=== PATIENT | male | born 1940 | race Caucasian/White ===

== ENCOUNTER 2016-08-29 19:57 | Observation (INO) | payer MEDICARE, BC ==
[~2016-08-29] VITALS: Ht 175.3 cm; Wt 90.0 kg
[~2016-08-29 19:57] MED LIST: ASPI-99 PO; BENI40TA30 PO; FINA1TAB2 PO; LEVA750T PO; PREV30CA36 PO; SIMV20 PO
[2016-08-29 20:00] VITALS: BP 135/70; PULSE 83; RESP 16; TEMP 97.9; O2SAT 95
[2016-08-29 21:00] VITALS: BP 142/79; PULSE 77; RESP 16; O2SAT 96
[2016-08-29] MEDS ORDERED: ASPIRIN 81 MG CHEW TAB PO ONE (21:00)
[2016-08-29] MEDS ORDERED: SODIUM CHLORIDE 0.9% FLUSH 5 ML FLUSH IVF PRN ×2 (21:00→22:45)
--- NOTE | 2016-08-29 21:05 | PD ---
HPI Chief Complaint: Chest Pain Time Seen by Provider: 21:02 Travel History International Travel<30 days: No Contact w/Intl Traveler<30days: No Traveled to known affect area: No History of Present Illness HPI 75-year-old male presents to the emergency department for evaluation of chest pain that started last night. He states it has changed positions since last night. He had some again this afternoon. He denies a chest pain at this time. Patient does report a history of a stent in his abdominal aortic, hypertension , hyperlipidemia. Patient takes an aspirin at night. He has not had aspirin yet today. 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 He just came from [place] approximately one week ago which was an [address] He also states that he went to [place] in June. Patient denies any leg swelling or hemoptysis. He does report a mild dry cough. No fevers. PFSH Past Medical History Hx Anticoagulant Therapy: Yes (ASA) Heart Rhythm Problems: Yes Cancer: Yes (SKIN) Cardiovascular Problems: Yes (HTN, AORTIC STENT) High Cholesterol: Yes Diminished Hearing: No Endocrine: No Gastrointestinal Disorders: Yes GERD: Yes Genitourinary: No Hypertension: Yes Immune Disorder: No Musculoskeletal: No Neurologic: No Psychiatric: No Reproductive: No Respiratory: No Past Surgical History Abdominal Aneurysm Repair: Yes Abdominal Surgery: Yes (AAA REPAIR) Appendectomy: Yes Body Medical Devices: AAA REPAIR-STENT PLACED Other Surgery: Yes Social History Alcohol Use: Yes (on occasion) Tobacco Use: No Substance Use: No Allergies-Medications (Allergen,Severity, Reaction): Coded Allergies: Contrast Media (Verified Adverse Reaction, Intermediate, Hives, 08/29/16) Reported Meds & Prescriptions Reported Meds & Active Scripts Active Reported Zocor (Simvastatin) 20 Mg Tab 20 Mg PO DAILY Benicar (Olmesartan) 40 Mg Tab 40 Mg PO DAILY Prevacid (Lansoprazole) 30 Mg Capdr 30 Mg PO DAILY Finasteride 5 Mg Tab 5 Mg PO DAILY Do not crush. Aspirin 81 (Aspirin) 81 Mg Tabdr 81 Mg PO DAILY Review of Systems Except as stated in HPI: all other systems reviewed are Neg Physical Exam Narrative GENERAL: Well-developed well-nourished male patient, afebrile. SKIN: Warm and dry. HEAD: Normocephalic. Atraumatic. EYES: No scleral icterus. No injection or drainage. NECK: Supple, trachea midline. No JVD or lymphadenopathy. CARDIOVASCULAR: Regular rate and rhythm without murmurs, gallops, or rubs. RESPIRATORY: Breath sounds equal bilaterally. No accessory muscle use. Lungs sounds are clear to auscultation. GASTROINTESTINAL: Abdomen soft, non-tender, nondistended. MUSCULOSKELETAL: No cyanosis, or edema. BACK: Nontender without obvious deformity. No CVA tenderness. Data Data Last Documented VS Vital Signs Date Time Temp Pulse Resp B/P Pulse Ox O2 Delivery O2 Flow Rate FiO2 08/29/16 21:00 77 16 142/79 96 Room Air 08/29/16 20:00 97.9 Orders Electrocardiogram (08/29/16 20:13) Basic Metabolic Panel (Bmp) (08/29/16 20:59) Ckmb (Isoenzyme) Profile (08/29/16 20:59) Complete Blood Count With Diff (08/29/16 20:59) D-Dimer (08/29/16 20:59) Magnesium (Mg) (08/29/16 20:59) Prothrombin Time / Inr (Pt) (08/29/16 20:59) Act Partial Throm Time (Ptt) (08/29/16 20:59) Troponin I (08/29/16 20:59) Chest, Single Ap (08/29/16 20:59) Ecg Monitoring (08/29/16 20:59) Bilateral Bp Monitoring (08/29/16 20:59) Iv Access Insert/Monitor (08/29/16 20:59) Oximetry (08/29/16 20:59) Oxygen Administration (08/29/16 20:59) Aspirin Chew (Aspirin Chew) (08/29/16 21:00) Sodium Chloride 0.9% Flush (Ns Flush) (08/29/16 21:00) CKMB (08/29/16 21:15) CKMB% (08/29/16 21:15) Admit Order (Ed Use Only) (08/29/16 22:35) Activity Bed Rest With Brp (08/29/16 22:36) Vital Signs (Adult) Q4H (08/29/16 22:36) Cardiac Rhythm .As Directed (08/29/16 22:36) ^ Notify Dr: Other .PRN (08/29/16 22:36) ^ Notify Dr. Parameters (08/29/16 22:36) Resp Oxygen Nasal Cannula (08/29/16 ) Ckmb (Isoenzyme) Profile (08/30/16 00:15) Ckmb (Isoenzyme) Profile (08/30/16 03:15) Troponin I (08/30/16 00:15) Troponin I (08/30/16 03:15) Electrocardiogram (08/30/16 00:15) Electrocardiogram (08/30/16 03:15) ^ Obtain (08/29/16 22:36) Sodium Chloride 0.9% Flush (Ns Flush) (08/29/16 22:45) Sodium Chloride 0.9% Flush (Ns Flush) (08/30/16 09:00) Labs Laboratory Tests Test 08/29/16 21:15 White Blood Count 11.5 TH/MM3 Red Blood Count 5.24 MIL/MM3 Hemoglobin 14.4 GM/DL Hematocrit 43.6 % Mean Corpuscular Volume 83.3 FL Mean Corpuscular Hemoglobin 27.6 PG Mean Corpuscular Hemoglobin 33.1 % Concent Red Cell Distribution Width 13.9 % Platelet Count 223 TH/MM3 Mean Platelet Volume 8.0 FL Neutrophils (%) (Auto) 77.2 % Lymphocytes (%) (Auto) 13.1 % Monocytes (%) (Auto) 6.2 % Eosinophils (%) (Auto) 3.0 % Basophils (%) (Auto) 0.5 % Neutrophils # (Auto) 8.9 TH/MM3 Lymphocytes # (Auto) 1.5 TH/MM3 Monocytes # (Auto) 0.7 TH/MM3 Eosinophils # (Auto) 0.3 TH/MM3 Basophils # (Auto) 0.1 TH/MM3 CBC Comment DIFF FINAL Differential Comment Prothrombin Time 11.5 SEC Prothromb Time International 1.0 RATIO Ratio Activated Partial 26.6 SEC Thromboplast Time Sodium Level 137 MEQ/L Potassium Level 3.6 MEQ/L Chloride Level 102 MEQ/L Carbon Dioxide Level 27.0 MEQ/L Anion Gap 8 MEQ/L Blood Urea Nitrogen 14 MG/DL Creatinine 1.07 MG/DL Estimat Glomerular Filtration 67 ML/MIN Rate Random Glucose 161 MG/DL Calcium Level 8.6 MG/DL Magnesium Level 2.1 MG/DL Total Creatine Kinase 157 U/L Creatine Kinase MB 2.2 NG/ML Troponin I LESS THAN 0.02 NG/ML [facility] Medical Decision Making Medical Screen Exam Complete: Yes Emergency Medical Condition: Yes Medical Record Reviewed: Yes Interpretation(s) chest x-ray - CONCLUSION: No acute disease. Differential Diagnosis ACS versus chest wall pain versus pneumonia versus pneumothorax versus PE Narrative Course 75-year-old male presents to the emergency department for evaluation of chest pain occurred last night and again today. He states chest pain is gone at this time. EKG, CBC, BMP, CK, troponin, magnesium, PTT, PT/INR, d-dimer are ordered and pending. Chest x-ray is ordered and pending. Lab notified me that the machine to run the d-dimer is down and the lab has to be sent to [place] for processing. EKG shows SR with RBB. CBC shows slight leukocytosis of 11.5. BMP shows no acute abnormality. CK is 157. Troponin is less than 0.02. Magnesium is 2.1. Coags are unremarkable. Chest x-ray shows no acute disease. D-dimer is still pending due to machine being down. I do feel that PE is not likely with patient 's symptoms. This will be followed up after patient is admitted to the chest pain center. Patient will be admitted to the chest pain center for further evaluation. Diagnosis Primary Impression: Chest pain Qualified Code: R07.9 - Chest pain, unspecified type Admitting Information Admitting Physician Requests: Rakel Barrett Aug 29, 2016 21:05
[2016-08-29] MEDS ORDERED: PREV30CA11 PO (21:08)
[2016-08-29] MEDS ORDERED: ASPI-110 PO (21:08)
[2016-08-29] MEDS ORDERED: ZOCO20TA PO (21:08)
[2016-08-29] MEDS ORDERED: FINA5TAB2 PO (21:08)
[2016-08-29] MEDS ORDERED: BENI40TA3 PO (21:08)
--- NOTE | 2016-08-29 21:18 | PD ---
Data Data Last Documented VS Vital Signs Date Time Temp Pulse Resp B/P Pulse Ox O2 Delivery O2 Flow Rate FiO2 08/29/16 22:00 72 16 151/83 95 08/29/16 21:00 Room Air 08/29/16 20:00 97.9 Orders Electrocardiogram (08/29/16 20:13) Basic Metabolic Panel (Bmp) (08/29/16 20:59) Ckmb (Isoenzyme) Profile (08/29/16 20:59) Complete Blood Count With Diff (08/29/16 20:59) D-Dimer (08/29/16 20:59) Magnesium (Mg) (08/29/16 20:59) Prothrombin Time / Inr (Pt) (08/29/16 20:59) Act Partial Throm Time (Ptt) (08/29/16 20:59) Troponin I (08/29/16 20:59) Chest, Single Ap (08/29/16 20:59) Ecg Monitoring (08/29/16 20:59) Bilateral Bp Monitoring (08/29/16 20:59) Iv Access Insert/Monitor (08/29/16 20:59) Oximetry (08/29/16 20:59) Oxygen Administration (08/29/16 20:59) Aspirin Chew (Aspirin Chew) (08/29/16 21:00) Sodium Chloride 0.9% Flush (Ns Flush) (08/29/16 21:00) CKMB (08/29/16 21:15) CKMB% (08/29/16 21:15) Admit Order (Ed Use Only) (08/29/16 22:35) Activity Bed Rest With Brp (08/29/16 22:36) Vital Signs (Adult) Q4H (08/29/16 22:36) Cardiac Rhythm .As Directed (08/29/16 22:36) ^ Notify Dr: Other .PRN (08/29/16 22:36) ^ Notify Dr. Parameters (08/29/16 22:36) Resp Oxygen Nasal Cannula (08/29/16 ) Ckmb (Isoenzyme) Profile (08/30/16 00:15) Ckmb (Isoenzyme) Profile (08/30/16 03:15) Troponin I (08/30/16 00:15) Troponin I (08/30/16 03:15) Electrocardiogram (08/30/16 00:15) Electrocardiogram (08/30/16 03:15) ^ Obtain (08/29/16 22:36) Sodium Chloride 0.9% Flush (Ns Flush) (08/29/16 22:45) Sodium Chloride 0.9% Flush (Ns Flush) (08/30/16 09:00) Labs Laboratory Tests Test 08/29/16 21:15 White Blood Count 11.5 TH/MM3 Red Blood Count 5.24 MIL/MM3 Hemoglobin 14.4 GM/DL Hematocrit 43.6 % Mean Corpuscular Volume 83.3 FL Mean Corpuscular Hemoglobin 27.6 PG Mean Corpuscular Hemoglobin 33.1 % Concent Red Cell Distribution Width 13.9 % Platelet Count 223 TH/MM3 Mean Platelet Volume 8.0 FL Neutrophils (%) (Auto) 77.2 % Lymphocytes (%) (Auto) 13.1 % Monocytes (%) (Auto) 6.2 % Eosinophils (%) (Auto) 3.0 % Basophils (%) (Auto) 0.5 % Neutrophils # (Auto) 8.9 TH/MM3 Lymphocytes # (Auto) 1.5 TH/MM3 Monocytes # (Auto) 0.7 TH/MM3 Eosinophils # (Auto) 0.3 TH/MM3 Basophils # (Auto) 0.1 TH/MM3 CBC Comment DIFF FINAL Differential Comment Prothrombin Time 11.5 SEC Prothromb Time International 1.0 RATIO Ratio Activated Partial 26.6 SEC Thromboplast Time D-Dimer Quantitative (PE/DVT) 0.97 MG/L FEU Sodium Level 137 MEQ/L Potassium Level 3.6 MEQ/L Chloride Level 102 MEQ/L Carbon Dioxide Level 27.0 MEQ/L Anion Gap 8 MEQ/L Blood Urea Nitrogen 14 MG/DL Creatinine 1.07 MG/DL Estimat Glomerular Filtration 67 ML/MIN Rate Random Glucose 161 MG/DL Calcium Level 8.6 MG/DL Magnesium Level 2.1 MG/DL Total Creatine Kinase 157 U/L Creatine Kinase MB 2.2 NG/ML Troponin I LESS THAN 0.02 NG/ML [facility] Medical Record Reviewed: Yes Supervised Visit with NEFTALI: Yes Interpretation(s) Last Impressions Chest X-Ray 08/29/162058 Signed Impressions: Service Date/Time: Monday, August 29, 2016 21:14 - CONCLUSION: No acute disease. Reggie Dempsey MD Narrative Course I, Dr. Cerna, have reviewed the advance practice practitioner's documentation and am in agreement, met with the patient face to face, made the diagnosis, and the medical decision making was done by me. The patient was initially evaluated by Rakel. Please see her complete history and physical. *My assessment and Findings: The patient is a 75-year-old male who presents to [facility] emergency Department with history of chest pain that is intermittently been present since last night. The patient has a history of abdominal aortic stenting, hypertension, and hyperlipidemia. He denies any prior history of cardiac disease. The patient was also incidentally recently on a trip in the car to [place]. The patient's initial examination is unremarkable. Laboratory studies and chest x-ray were ordered. The patient's laboratory studies revealed a positive d-dimer, VQ study was ordered. Chest x- ray showed no acute abnormality. Initial set of cardiac enzymes were negative. VQ scan was low probability for PE. The patient was agreeable with the plan to proceed with admission to the chest pain center for rule out serial cardiac enzyme protocol and consideration of stress testing as he has multiple risk factors for cardiac disease. The patients results were discussed with the patient, including the plan of care. I explained that further testing and/ or monitoring is indicated based on the patients history, examination, and/ or laboratory findings. Therefore, I recommended admission for additional evaluation. The patient expressed understanding and was agreeable with this plan. The patient was admitted to the hospital in stable condition and sent to a bed under the care of the chest pain center. Diagnosis Primary Impression: Chest pain Qualified Code: R07.9 - Chest pain, unspecified type Admitting Information Admitting Physician Requests: Becki Barber MD Aug 29, 2016 21:18
[2016-08-29 21:41] LABS: AUTOMATED NEUTROPHIL # 8.9 TH/MM3 (1.8-7.7); BASOPHIL # 0.1 TH/MM3 (0-0.2); BASOPHIL % 0.5 % (0.0-2.0); EOSINOPHIL # 0.3 TH/MM3 (0-0.4); HEMATOCRIT 43.6 % (39.0-51.0); HEMO FLAGS DIFF FINAL; LYMPH % 13.1 % (9.0-44.0); LYMPHOCYTE # 1.5 TH/MM3 (1.0-4.8); MEAN CELL VOLUME 83.3 FL (80.0-100.0); MEAN CORPUSCULAR HEMOGLOBIN 27.6 PG (27.0-34.0); MEAN CORPUSCULAR HGB CONC 33.1 % (32.0-36.0); MONO % 6.2 % (0.0-8.0); NEUT % 77.2 % (16.0-70.0); PLATELET COUNT 223 TH/MM3 (150-450); RED BLOOD COUNT 5.24 MIL/MM3 (4.50-5.90); RED CELL DISTRIBUTION WIDTH 13.9 % (11.6-17.2); WHITE BLOOD COUNT 11.5 TH/MM3 (4.0-11.0)
--- NOTE | 2016-08-29 21:47 | RADRPT ---
EXAM DATE/TIME: 08/29/2016 21:14 [facility] COMPARISON: CHEST SINGLE AP, July 05, 2014, 17:33. INDICATIONS : Patient states chest pain starting last night. MEDICAL HISTORY : None. SURGICAL HISTORY : Abdominal aortic aneurysm repair. Appendectomy. ENCOUNTER: Initial ACUITY: 2 days PAIN SCORE: 0/10 LOCATION: Bilateral chest FINDINGS: A single view of the chest demonstrates the lungs to be symmetrically aerated without evidence of mas s, infiltrate or effusion. The cardiomediastinal contours are unremarkable. Osseous structures are intact. CONCLUSION: No acute disease. Reggie Dempsey MD on August 29, 2016 at 21:45 Board Certified Radiologist. This report was verified electronically.
[2016-08-29 22:00] VITALS: BP 151/83; PULSE 72; RESP 16; O2SAT 95
[2016-08-29 22:07] LABS: ANION GAP 8 MEQ/L (5-15); BLOOD UREA NITROGEN 14 MG/DL (7-18); CHLORIDE 102 MEQ/L (98-107); GLOMERULAR FILTRATION RATE 67 ML/MIN (>89); MAGNESIUM 2.1 MG/DL (1.5-2.5); POTASSIUM 3.6 MEQ/L (3.5-5.1); SODIUM (NA) 137 MEQ/L (136-145)
[2016-08-29 22:11] LABS: APTT (PATIENT) 26.6 SEC (24.3-30.1); CREATINE KINASE 157 U/L (39-308); PROTHROMBIN TIME - PATIENT 11.5 SEC (9.8-11.6)
[2016-08-29 22:23] LABS: CKMB 2.2 NG/ML (0.5-3.6)
[2016-08-29 23:30] VITALS: O2SAT 96
[2016-08-30 00:55] LABS: CREATINE KINASE 141 U/L (39-308)
[2016-08-30 01:06] LABS: CKMB 1.4 NG/ML (0.5-3.6)
[2016-08-30 02:00] VITALS: BP 142/78; PULSE 55; RESP 16; O2SAT 96
--- NOTE | 2016-08-30 02:10 | RADRPT ---
EXAM DATE/TIME: 08/30/2016 01:37 [facility] COMPARISON: LUNG VENTILATION & PERFUSION SCAN, July 05, 2014, 20:55. INDICATIONS : Chest pain. DOSE: 8.8 mCi Tc99m MAA IV 1.2 mCi Tc99m DTPA aerosol MEDICAL HISTORY : Hypercholesterolemia. Hypertension. Gastroesophageal reflux disease. SURGICAL HISTORY : Appendectomy. Abdominal aortic aneurysm repair. Coronary artery stent. ENCOUNTER: Initial ACUITY: 1 week PAIN SCALE: 3/10 LOCATION: chest TECHNIQUE: Following five minutes of tidal breathing of DTPA aerosol, planar images of the lungs were performed in eight projections. The patient was then injected with MAA, and eight-view perfusion scan was perf ormed. FINDINGS: There is a heterogeneous pattern of aerosol delivery to the periphery of both lungs. No moderate or l arge photopenic defects observed. Central airway deposition noted. The perfusion lung scan demonstrates a few tiny peripheral subsegmental photopenic defects involving both upper lobes. These show matched defects in the ventilatory study. No subsegmental or segmental d efects observed. CONCLUSION: Low probability for pulmonary embolus. Gonsalo Jean Baptiste Jr., MD on August 30, 2016 at 2:07 Board Certified Radiologist. This report was verified electronically.
[2016-08-30 04:53] LABS: CREATINE KINASE 140 U/L (39-308)
[2016-08-30 05:00] VITALS: BP 126/77; PULSE 54; RESP 14; O2SAT 96
[2016-08-30 05:18] LABS: CKMB 1.3 NG/ML (0.5-3.6)
[2016-08-30 07:43] VITALS: BP 135/76; PULSE 67; RESP 12; O2SAT 97
[2016-08-30 08:20] VITALS: O2SAT 97
[2016-08-30] MEDS ORDERED: SODIUM CHLORIDE 0.9% FLUSH 5 ML FLUSH IVF SCH (09:00)
[2016-08-30 09:30] VITALS: BP 152/83; PULSE 73; RESP 20; TEMP 97.6; O2SAT 96
[2016-08-30 09:46] VITALS: PULSE 55
--- NOTE | 2016-08-30 10:24 | HHI.DCPOC ---
Discharge Care Plan Diagnosis: (1) Chest pain (2) Hypertension (3) Hyperlipidemia Goals to Promote Your Health FOLLOW UP WITH DR GRISELDA TOBIN EARLY NEXT WEEK FOR NUCLEAR STRESS TEST. * To prevent worsening of your condition and complications * To maintain your health at the optimal level Directions to Meet Your Goals Take your medications as prescribed Follow your dietary instruction Follow activity as directed Keep your appointments as scheduled Take your immunizations and boosters as scheduled If your symptoms worsen call your PCP, if no PCP go to Urgent Care Center or Emergency Room Smoking is Dangerous to Your Health. Avoid second hand smoke Call the 24-hour hour crisis hotline for domestic abuse at Fabrice Mcclendon Aug 30, 2016 10:24
[2016-08-30] MEDS ORDERED: LOSARTAN 50 MG TAB PO SCH (11:00)
--- NOTE | 2016-08-30 13:13 | EKG ---
Date Performed: 08/30/2016 Time Performed: 04:47:27 PTAGE: 75 years EKG: SINUS BRADYCARDIA POSSIBLE RIGHT VENTRICULAR CONDUCTION DELAY BORDERLINE ECG PREVIOUS TRACING : 08/30/2016 00.17 Since previous tracing, no significant change noted DOCTOR: Mac Wright Interpretating Date/Time 08/30/2016 13:13:21
--- NOTE | 2016-08-30 13:16 | MH ---
cc: GRISELDA WRIGHT MD DATE OF ADMISSION: 08/29/2016 DATE OF 1940 CHIEF COMPLAINT Chest pain HISTORY OF PRESENT ILLNESS This 75-year-old male presents to the ED complaining of two days of having intermittent discomfort across his chest. He describes it as a sharp discomforts across his chest lasting a second at a time. Last evening, this got a little worse and he was concerned and came to the ER. He has had no associated shortness of breath, nausea, or diaphoresis with his symptoms. He has traveled recently. He had just came in from [place] last week and about two months ago, he traveled throughout [place]. He denies any history of CAD. He cannot recall any stress testing, but believes he had a heart catheterization 20 years ago. He will be in [place] for a couple months. He currently denies any discomforts in his chest or recurrence since he has been in the hospital. PAST MEDICAL HISTORY 1. Hypertension 2. Hyperlipidemia 3. BPH 4. GERD 5. He also has a history of abdominal aortic aneurysm that was repaired with stenting. He states that has been followed annually since. 6. Past history of tobacco abuse, but quit 25 years ago. 7. Denies diabetes and CAD. FAMILY HISTORY Denies a family history of CAD. SOCIAL HISTORY He quit smoking 25 years ago. Rarely has alcohol and denies illicit drugs. PAST SURGICAL HISTORY He had an abdominal aortic aneurysm stented. ALLERGIES CONTRAST MEDIA CURRENT MEDICATIONS 1. Simvastatin 1. Benicar 2. Prevacid 3. Finasteride 4. Aspirin REVIEW OF SYSTEMS GENERAL: Denies fevers or chills. Denies recent illnesses. HEENT: Denies headache, earache, sore throat or difficulty swallowing. CARDIOVASCULAR: Describes the discomfort as mentioned above. Denies diaphoresis. Denies sensation of heart beating rapidly or irregularly. No syncope. RESPIRATORY: No shortness breath or inspirational chest discomfort. Denies coughing, wheezing or hemoptysis. GI: Denies nausea, vomiting, diarrhea, abdominal pain or blood in the stool. MUSCULOSKELETAL: Denies joint pain or edema. Denies calf pain or edema. NEUROVASCULAR: Denies headache or dizziness. ENDOCRINE: Denies by polyuria or polydipsia. HEMATOLOGIC: Denies easy bruising. SKIN: Denies rash or itching. PHYSICAL EXAMINATION VITAL SIGNS: In emergency department initially included a blood pressure of 135/70, heart rate was 83, respirations 16, pulse oximetry 95% on room air and he was afebrile. Most vital signs include a blood pressure 150/83, heart rate 73, respiratory rate 20, pulse oximetry 96% on room air. GENERAL: The patient seen in the examination room in no apparent stress. He is pleasant. Speaks in clear and complete sentences. HEAD, EYES, EARS, NOSE, AND THROAT: Head is atraumatic and normocephalic. NECK: Supple without lymphadenopathy and trachea is midline. No JVD or carotid bruits. CARDIOVASCULAR: Regular rate and rhythm without murmur, gallop or rub. RESPIRATORY: Lungs are clear to auscultation bilaterally. No wheezing, rales or rhonchi. There is no reproducible chest wall discomfort. No use of accessory muscles. GI: Abdomen is nontender and nondistended and bowel sounds are normal. No guarding or rebound. No obvious pulsatile mass or bruit. No CVA tenderness. Strong femoral pulses bilaterally. MUSCULOSKELETAL: Patient moving upper and lower x-rays freely. No joint tenderness or edema. No calf tenderness or edema, Homans' sign. Strong pulses in the upper and lower extremities. NEUROVASCULAR: The patient is alert and oriented. Cranial II XII are grossly intact. No focal deficits and speech is clear. SKIN: No rashes and skin turgor is normal. LABORATORY DATA CBC is essentially remarkable. Coagulation studies have a D-dimer elevated 0.97. Basic metabolic panel has a glucose elevated at 161, GFR is decreased at 67, otherwise unremarkable BMP. Serial cardiac enzymes normal x3. Single view chest x-ray read by radiologist as no acute disease. A VQ scan obtained through the emergency department read by the radiologist as low probability for pulmonary embolus. EKG's have sinus rhythm, sinus arrhythmia and sinus bradycardia, right bundle branch block. There is some nonspecific ST-T changes anterolaterally. ASSESSMENT AND PLAN 1. Atypical chest pain: The patient has had serial cardiac enzymes and EKG's for ruling out purposes. He has been seen by Dr. Griselda Wright of cardiology in the chest pain center. No further stress testing at this time. However, he is will follow up with Dr. Griselda Wright on an outpatient basis next week for nuclear stress testing at the time. He is to returned the ED for any interval issues. 2. Hypertension: Continue current medication. 3. Hyperlipidemia: Continue current medications. 4. Gastroesophageal reflux disease: Continue current medications. The patient is stable at time. He is agreeable to this plan. Dictated by NAVYA Liriano MD ROMELIA Tarn/RYLAN /11:04 AM /1:15 PM
--- NOTE | 2016-08-30 13:17 | EKG ---
Date Performed: 08/30/2016 Time Performed: 00:17:23 PTAGE: 75 years EKG: Sinus rhythm WITH MARKED SINUS ARRHYTHMIA RIGHT BUNDLE BRANCH BLOCK ABNORMAL ECG PREVIOUS TRACING : 08/29/2016 20.18 Since previous tracing, no significant change noted DOCTOR: Mac Wright Interpretating Date/Time 08/30/2016 13:16:36
--- NOTE | 2016-08-30 13:21 | EKG ---
Date Performed: 08/29/2016 Time Performed: 20:18:07 PTAGE: 75 years EKG: Sinus rhythm WITH MARKED SINUS ARRHYTHMIA RIGHT BUNDLE BRANCH BLOCK ABNORMAL ECG PREVIOUS TRACING : 07/06/2014 05.32 Since previous tracing, no significant change noted DOCTOR: Mac Wright Interpretating Date/Time 08/30/2016 13:19:47
[2016-08-31] MEDS ORDERED: FINASTERIDE 5 MG TAB PO SCH (09:00)
[2016-08-31] MEDS ORDERED: ASPIRIN EC 81 MG TABEC PO SCH (09:00)
[2016-08-31] MEDS ORDERED: PRAVASTATIN SOD 40 MG TAB PO SCH (09:00)
[2016-08-31] MEDS ORDERED: PANTOPRAZOLE SOD 40 MG DELAYED RELEASE TAB PO SCH (09:00)
== END 2016-08-30 15:29 | disposition home or self-care (01) ==
LOC: NEPC 19:57 → NEDA 22:37 → NEDH 08-30 02:37 → NEPFCDU 08-30 09:28
PROVIDERS: ADMIT Internal Medicine Interventional Cardiology; ATTEND Internal Medicine Interventional Cardiology
DX: R07.9 Chest pain, unspecified (principal); I10 Essential (primary) hypertension; E78.5 Hyperlipidemia, unspecified; R05 Cough; Z79.82 Long term (current) use of aspirin; E78.00 Pure hypercholesterolemia, unspecified; K21.9 Gastro-esophageal reflux disease without esophagitis; I71.4 Abdominal aortic aneurysm, without rupture; Z79.899 Other long term (current) drug therapy
CPT/HCPCS: 71010; 78582; 80048; 82550; 82552; 83735; 84484; 85025; 85379; 85610; 85730; 93005; 99285; A9540; A9567; G0378

== ENCOUNTER 2017-02-13 15:02 | Inpatient (IN) | payer MEDICARE, BC ==
[2017-02-13] VITALS (10 sets, daily range): BP systolic 116–145; BP diastolic 58–76; PULSE 54–76; RESP 16; TEMP 98–98.1; O2SAT 99–100
[~2017-02-13] VITALS: Ht 175.3 cm; Wt 90.5 kg
[~2017-02-13 15:02] MED LIST changes: +ASPI-110 PO; -ASPI-99 PO; +BENI40TA3 PO; -BENI40TA30 PO; -FINA1TAB2 PO; +FINA5TAB2 PO; -LEVA750T PO; +PREV30CA11 PO; -PREV30CA36 PO; -SIMV20 PO; +ZOCO20TA PO
--- NOTE | 2017-02-13 15:35 | PD ---
HPI Chief Complaint: Chest Pain Time Seen by Provider: 15:15 Travel History International Travel<30 days: No Contact w/Intl Traveler<30days: No Traveled to known affect area: No History of Present Illness HPI 76-year-old male here for evaluation of chest tightness. For the last 3 days the patient has had intermittent chest tightness. At first it was lower. Today he states that the tightness was across his mid and upper chest. Patient was not sure what he was doing when the tightness started today. He is currently pain-free. Past medical history is significant for hypertension, hyperlipidemia, GERD, AAA with a stent, quit smoking 25 years ago. He denies fevers or recent illness. No paresthesias or motor deficits. No known history of CAD. No history of DVT or PE. The patient was admitted to the chest pain center in August of this year and was discharged home after a negative VQ scan and 3 sets of negative cardiac enzymes. He followed up with residential substance abuse counselor Dr. Wright whom he states did an outpatient stress test which may have showed that there is an area of ischemia. PFSH Past Medical History Hx Anticoagulant Therapy: Yes (ASA) Heart Rhythm Problems: Yes Cancer: Yes (SKIN) Cardiovascular Problems: Yes (chest pain, AAA repair 4 years ago with stent) High Cholesterol: Yes (on simivistatin) Diminished Hearing: No Endocrine: No Gastrointestinal Disorders: Yes GERD: Yes Genitourinary: No Hypertension: Yes Immune Disorder: No Implanted Vascular Access Dvce: Yes Musculoskeletal: No Neurologic: No Psychiatric: No Reproductive: No Respiratory: No Tetanus Vaccination: Unknown Influenza Vaccination: Yes Past Surgical History Abdominal Aneurysm Repair: Yes Abdominal Surgery: Yes (AAA REPAIR) Appendectomy: Yes Body Medical Devices: AAA REPAIR-STENT PLACED Other Surgery: Yes Social History Alcohol Use: Yes (on occasion) Tobacco Use: No Substance Use: No Allergies-Medications (Allergen,Severity, Reaction): Coded Allergies: Contrast Media (Verified Adverse Reaction, Intermediate, Hives, 02/13/17) Reported Meds & Prescriptions Reported Meds & Active Scripts Active Reported Zocor (Simvastatin) 20 Mg Tab 20 Mg PO DAILY Benicar (Olmesartan) 40 Mg Tab 40 Mg PO DAILY Prevacid (Lansoprazole) 30 Mg Capdr 30 Mg PO DAILY Aspirin 81 (Aspirin) 81 Mg Tabdr 81 Mg PO DAILY Review of Systems Except as stated in HPI: all other systems reviewed are Neg Physical Exam Narrative GENERAL: Well-developed, well-nourished, comfortable, no acute distress. SKIN: Focused skin assessment warm/dry. HEAD: Atraumatic. Normocephalic. EYES: Pupils equal and round. No scleral icterus. No injection or drainage. ENT: Mucous membranes pink and moist. NECK: Trachea midline. No JVD. CARDIOVASCULAR: Regular rate and rhythm. Distal pulses brisk and equal bilaterally. RESPIRATORY: No accessory muscle use. Clear to auscultation. Breath sounds equal bilaterally. GASTROINTESTINAL: Abdomen soft, non-tender, nondistended. MUSCULOSKELETAL: No obvious deformities. No clubbing. No cyanosis. No edema. NEUROLOGICAL: Awake and alert. No obvious cranial nerve deficits. Motor grossly within normal limits. Normal speech. PSYCHIATRIC: Appropriate mood and affect; insight and judgment normal. Data Data Last Documented VS Vital Signs Date Time Temp Pulse Resp B/P Pulse Ox O2 Delivery O2 Flow Rate FiO2 02/13/17 15:50 100 Room Air 02/13/17 15:26 76 16 02/13/17 15:23 98.1 131/59 Orders Electrocardiogram (02/13/17 15:32) Basic Metabolic Panel (Bmp) (02/13/17 15:32) Ckmb (Isoenzyme) Profile (02/13/17 15:32) Complete Blood Count With Diff (02/13/17 15:32) Magnesium (Mg) (02/13/17 15:32) Prothrombin Time / Inr (Pt) (02/13/17 15:32) Act Partial Throm Time (Ptt) (02/13/17 15:32) Troponin I (02/13/17 15:32) Chest, Single Ap (02/13/17 15:32) Ecg Monitoring (02/13/17 15:32) Iv Access Insert/Monitor (02/13/17 15:32) Oximetry (02/13/17 15:32) Aspirin Chew (Aspirin Chew) (02/13/17 15:45) Sodium Chloride 0.9% Flush (Ns Flush) (02/13/17 15:45) CKMB (02/13/17 15:41) CKMB% (02/13/17 15:41) Metoprolol Tartrate (Lopressor) (02/13/17 16:45) Enoxaparin Inj (Lovenox Inj) (02/13/17 16:45) Consult Cardiology (02/13/17 ) Labs Laboratory Tests Test 02/13/17 15:41 White Blood Count 9.8 TH/MM3 Red Blood Count 4.86 MIL/MM3 Hemoglobin 14.2 GM/DL Hematocrit 41.1 % Mean Corpuscular Volume 84.7 FL Mean Corpuscular Hemoglobin 29.2 PG Mean Corpuscular Hemoglobin 34.5 % Concent Red Cell Distribution Width 12.8 % Platelet Count 221 TH/MM3 Mean Platelet Volume 8.5 FL Neutrophils (%) (Auto) 68.8 % Lymphocytes (%) (Auto) 19.1 % Monocytes (%) (Auto) 6.0 % Eosinophils (%) (Auto) 5.4 % Basophils (%) (Auto) 0.7 % Neutrophils # (Auto) 6.7 TH/MM3 Lymphocytes # (Auto) 1.9 TH/MM3 Monocytes # (Auto) 0.6 TH/MM3 Eosinophils # (Auto) 0.5 TH/MM3 Basophils # (Auto) 0.1 TH/MM3 CBC Comment DIFF FINAL Differential Comment Prothrombin Time 11.4 SEC Prothromb Time International 1.0 RATIO Ratio Activated Partial 26.4 SEC Thromboplast Time Sodium Level 143 MEQ/L Potassium Level 3.6 MEQ/L Chloride Level 106 MEQ/L Carbon Dioxide Level 25.8 MEQ/L Anion Gap 11 MEQ/L Blood Urea Nitrogen 13 MG/DL Creatinine 0.99 MG/DL Estimat Glomerular Filtration 73 ML/MIN Rate Random Glucose 141 MG/DL Calcium Level 8.8 MG/DL Magnesium Level 1.9 MG/DL Total Creatine Kinase 228 U/L Creatine Kinase MB 4.0 NG/ML Troponin I 0.57 NG/ML [facility] Medical Decision Making Medical Screen Exam Complete: Yes Emergency Medical Condition: Yes Medical Record Reviewed: Yes Interpretation(s) EKG: Sinus with occasional supraventricular premature complexes, RBBB, normal axis, no acute ischemic abnormality. Differential Diagnosis ACS, pneumothorax, peritonitis, PE, pneumonia GERD, musculoskeletal pain Narrative Course Vital signs show heart rate 76, blood pressure 131/59, pulse ox 100% on room air , oral temp of 98.1F. CBC is unremarkable. BMP is unremarkable. Troponin is 0.57. Chest x-ray: No acute cardiopulmonary disease. Patient and the patient's were made aware of all findings. Again he is resting comfortably. Currently chest pain-free. Case discussed with residential substance abuse counselor Dr. Wright who evaluated the patient in August of this year. He recommends giving the patient a dose of metoprolol as well as Lovenox. Patient was already given a dose of aspirin shortly after arrival to the emergency department. He recommends admission to the medical service and he will see the patient in consultation. Case discussed with hospitalist Dr. Valladares who will admit the patient to her service. Diagnosis Primary Impression: NSTEMI (non-ST elevated myocardial infarction) Admitting Information Admitting Physician Requests: Admit Jaspreet Hummel MD Feb 13, 2017 15:35
[2017-02-13] MEDS ORDERED: ASPIRIN 81 MG CHEW TAB PO ONE (15:45)
[2017-02-13] MEDS ORDERED: SODIUM CHLORIDE 0.9% FLUSH 10 ML FLUSH IVF PRN (15:45)
[2017-02-13 15:54] LABS: AUTOMATED NEUTROPHIL # 6.7 TH/MM3 (1.8-7.7); BASOPHIL # 0.1 TH/MM3 (0-0.2); BASOPHIL % 0.7 % (0.0-2.0); EOSINOPHIL # 0.5 TH/MM3 (0-0.4); EOSINOPHIL % 5.4 % (0.0-4.0); HEMATOCRIT 41.1 % (39.0-51.0); HEMO FLAGS DIFF FINAL; LYMPH % 19.1 % (9.0-44.0); LYMPHOCYTE # 1.9 TH/MM3 (1.0-4.8); MEAN CELL VOLUME 84.7 FL (80.0-100.0); MEAN CORPUSCULAR HEMOGLOBIN 29.2 PG (27.0-34.0); MEAN CORPUSCULAR HGB CONC 34.5 % (32.0-36.0); NEUT % 68.8 % (16.0-70.0); PLATELET COUNT 221 TH/MM3 (150-450); RED BLOOD COUNT 4.86 MIL/MM3 (4.50-5.90); RED CELL DISTRIBUTION WIDTH 12.8 % (11.6-17.2); WHITE BLOOD COUNT 9.8 TH/MM3 (4.0-11.0)
--- NOTE | 2017-02-13 15:57 | RADHPO ---
EXAM DATE/TIME: 02/13/2017 15:41 [facility] COMPARISON: CHEST SINGLE AP, August 29, 2016, 21:14. INDICATIONS : Chest tightness. MEDICAL HISTORY : Hypertension. SURGICAL HISTORY : Cardiac stent. ENCOUNTER: Initial ACUITY: 3 days PAIN SCORE: 0/10 LOCATION: Bilateral upper chest FINDINGS: A single view of the chest demonstrates the lungs to be symmetrically aerated without evidence of mas s, infiltrate or effusion. The cardiomediastinal contours are unremarkable. Osseous structures are intact. CONCLUSION: 1. No acute cardiopulmonary disease. Jason Juarez MD on February 13, 2017 at 15:53 Board Certified Radiologist. This report was verified electronically.
[2017-02-13 16:05] LABS: CHLORIDE 106 MEQ/L (98-107); POTASSIUM 3.6 MEQ/L (3.5-5.1); SODIUM (NA) 143 MEQ/L (136-145)
[2017-02-13 16:08] LABS: ANION GAP 11 MEQ/L (5-15); BICARBONATE 25.8 MEQ/L (21.0-32.0); MAGNESIUM 1.9 MG/DL (1.5-2.5)
[2017-02-13 16:09] LABS: APTT (PATIENT) 26.4 SEC (24.3-30.1); BLOOD UREA NITROGEN 13 MG/DL (7-18); PROTHROMBIN TIME - PATIENT 11.4 SEC (9.8-11.6)
[2017-02-13 16:12] LABS: GLOMERULAR FILTRATION RATE 73 ML/MIN (>89)
[2017-02-13 16:15] LABS: CREATINE KINASE 228 U/L (39-308)
--- NOTE | 2017-02-13 16:41 | EKG ---
Date Performed: 02/13/2017 Time Performed: 15:23:37 PTAGE: 76 years EKG: Sinus rhythm WITH OCCASIONAL SUPRAVENTRICULAR PREMATURE COMPLEXES RIGHT BUNDLE BRANCH BLOCK ABNORMAL ECG PREVIOUS TRACING : 08/30/2016 04.47 Compared to previous tracing, PACs are now present. DOCTOR: Clive Talbot Interpretating Date/Time 02/13/2017 16:41:06
[2017-02-13] MEDS ORDERED: ENOXAPARIN SODIUM 100 MG/ML SYRINGE SQ ONE (16:45)
[2017-02-13] MEDS ORDERED: METOPROLOL TARTRATE 25 MG TAB PO ONE (16:45)
[2017-02-13] MEDS ORDERED: SODIUM CHLORIDE 0.9% FLUSH 10 ML FLUSH IV FLUSH PRN (17:30)
[2017-02-13] MEDS ORDERED: MORPHINE SULFATE 8 MG/ML INJ IV PUSH PRN (17:30)
[2017-02-13] MEDS ORDERED: ONDANSETRON HCL 4 MG/2 ML VIAL IVP PRN (17:30)
[2017-02-13] MEDS ORDERED: ACETAMINOPHEN 325 MG TAB PO PRN (17:30)
[2017-02-13] MEDS ORDERED: NITROGLYCERIN 0.4 MG SL 25 TABS/BTL SL PRN (17:30)
[2017-02-13] MEDS ORDERED: ENOXAPARIN SODIUM 40 MG/0.4 ML SYRINGE SQ SCH (17:30)
--- NOTE | 2017-02-13 17:30 | HHI.HP ---
[facility] Service [place] [facility] Primary Care Physician Non-Staff Admission Diagnosis NSTEMI Diagnoses: Chief Complaint: Chest pain Travel History International Travel<30 Days: No Contact w/Intl Traveler <30 Da: No Traveled to Known Affected Are: No History of Present Illness 76 year old man with AAA complaining of 3 days of worsening severe midsternal Chest pain and associated SOB, CASON. Relieved with rest and now with relief in the ER, EKG shows PVC's but no ischemia on my review. Trops positive. Patient will be admitted for cardiac eval Review of Systems Constitutional: DENIES: Diaphoretic episodes, Fatigue, Fever, Weight gain, Weight loss, Chills, Dizziness, Change in appetite, Night Sweats Endocrine: DENIES: Heat/cold intolerance, Polydipsia, Polyuria, Polyphagia Eyes: DENIES: Blurred vision, Diplopia, Eye inflammation, Eye pain, Vision loss , Photosensitivity, Double Vision Respiratory: DENIES: Apneas, Cough, Snoring, Wheezing, Hemoptysis, Sputum production, Shortness of breath Cardiovascular: COMPLAINS OF: Chest pain, Dyspnea on Exertion, DENIES: Palpitations, Syncope, PND, Lower Extremity Edema, Orthopnea, Claudication Gastrointestinal: DENIES: Abdominal pain, Black stools, Bloody stools, Constipation, Diarrhea, Nausea, Vomiting, Difficulty Swallowing, Anorexia Genitourinary: DENIES: Sexual dysfunction, Urinary frequency, Urinary incontinence, Urgency, Hematuria, Dysuria, Nocturia, Penile Discharge, Testicular Pain, Testicular Swelling Musculoskeletal: DENIES: Joint pain, Muscle aches, Stiffness, Joint Swelling, Back pain, Neck pain Integumentary: DENIES: Abnormal pigmentation, Nail changes, Pruritus, Rash Hematologic/lymphatic: DENIES: Bruising, Lymphadenopathy Immunologic/allergic: DENIES: Eczema, Urticaria Neurologic: DENIES: Abnormal gait, Headache, Localized weakness, Paresthesias, Seizures, Speech Problems, Tremor, Poor Balance Psychiatric: DENIES: Anxiety, Confusion, Mood changes, Depression, Hallucinations, Agitation, Suicidal Ideation, Homicidal Ideation, Delusions Past Family Social History Past Medical History GERD AAA Hyperlipidemia Past Surgical History AAA repair appy Reported Medications Reviewed in the EMR Allergies: Coded Allergies: Contrast Media (Verified Adverse Reaction, Intermediate, Hives, 02/13/17) Active Ordered Medications Reviewed inthe EMR Family History Father at 56 from cad Mom at 92 Brother has a ppm Physical Exam Vital Signs Vital Signs Date Time Temp Pulse Resp B/P Pulse Ox O2 Delivery O2 Flow Rate FiO2 02/13/17 15:50 100 Room Air 02/13/17 15:26 76 16 100 Room Air 02/13/17 15:23 98.1 76 16 131/59 100 Physical Exam GENERAL: This is a well-nourished, well-developed patient, in no apparent distress. SKIN: No rashes, ecchymoses or lesions. Cool and dry. HEAD: Atraumatic. Normocephalic. No temporal or scalp tenderness. EYES: Pupils equal round and reactive. Extraocular motions intact. No scleral icterus. No injection or drainage. ENT: Nose without bleeding, purulent drainage or septal hematoma. Throat without erythema, tonsillar hypertrophy or exudate. Uvula midline. Airway patent. NECK: Trachea midline. No JVD or lymphadenopathy. Supple, nontender, no meningeal signs. CARDIOVASCULAR: Regular rate and rhythm without murmurs, gallops, or rubs. RESPIRATORY: Clear to auscultation. Breath sounds equal bilaterally. No wheezes , rales, or rhonchi. GASTROINTESTINAL: Abdomen soft, non-tender, nondistended. No hepato-splenomegaly , or palpable masses. No guarding. MUSCULOSKELETAL: Extremities without clubbing, cyanosis, or edema. No joint tenderness, effusion, or edema noted. No calf tenderness. Negative Homans sign bilaterally. NEUROLOGICAL: Awake and alert. Cranial nerves II through XII intact. Motor and sensory grossly within normal limits. Five out of 5 muscle strength in all muscle groups. Normal speech. Laboratory Laboratory Tests Test 02/13/17 15:41 White Blood Count 9.8 Red Blood Count 4.86 Hemoglobin 14.2 Hematocrit 41.1 Mean Corpuscular Volume 84.7 Mean Corpuscular Hemoglobin 29.2 Mean Corpuscular Hemoglobin 34.5 Concent Red Cell Distribution Width 12.8 Platelet Count 221 Mean Platelet Volume 8.5 Neutrophils (%) (Auto) 68.8 Lymphocytes (%) (Auto) 19.1 Monocytes (%) (Auto) 6.0 Eosinophils (%) (Auto) 5.4 Basophils (%) (Auto) 0.7 Neutrophils # (Auto) 6.7 Lymphocytes # (Auto) 1.9 Monocytes # (Auto) 0.6 Eosinophils # (Auto) 0.5 Basophils # (Auto) 0.1 CBC Comment DIFF FINAL Differential Comment Prothrombin Time 11.4 Prothromb Time International 1.0 Ratio Activated Partial 26.4 Thromboplast Time Sodium Level 143 Potassium Level 3.6 Chloride Level 106 Carbon Dioxide Level 25.8 Anion Gap 11 Blood Urea Nitrogen 13 Creatinine 0.99 Estimat Glomerular Filtration 73 Rate Random Glucose 141 Calcium Level 8.8 Magnesium Level 1.9 Total Creatine Kinase 228 Creatine Kinase MB 4.0 Troponin I 0.57 Result Diagram: 02/13/17 1541 02/13/17 1541 Imaging cxr no acute cardiopulmonary disease Assessment and Plan Problem List: (1) NSTEMI (non-ST elevated myocardial infarction) ICD Code: I21.4 Status: Acute Plan: LMWH, BB, Cardiac consult pending telemetry' aspirin trend trops, ekg Physician Certification 2 Midnight Certification Type: Admission for Inpatient Services Order for Inpatient Services The services are ordered in accordance with Medicare regulations or non- Medicare payer requirements, as applicable. In the case of services not specified as inpatient-only, they are appropriately provided as inpatient services in accordance with the 2-midnight benchmark. Estimated LOS (days): 3 3 days is the estimated time the patient will need to remain in the hospital, assuming treatment plan goals are met and no additional complications. Post-Hospital Plan: Sihlpi Deshpande MD Feb 13, 2017 17:30
[2017-02-13] MEDS: SODIUM CHLORIDE 0.9% FLUSH 10 ML FLUSH IV FLUSH SCH (21:00)
[2017-02-14] VITALS (22 sets, daily range): BP systolic 104–128; BP diastolic 51–75; PULSE 48–70; RESP 16–21; TEMP 97.8–99.4; O2SAT 94–99
[2017-02-14] MEDS ORDERED: METOPROLOL TARTRATE 25 MG TAB PO SCH (04:00)
[2017-02-14 04:56] LABS: BICARBONATE 26.9 MEQ/L (21.0-32.0); POTASSIUM 3.7 MEQ/L (3.5-5.1)
[2017-02-14] MEDS ORDERED: ENOXAPARIN SODIUM 100 MG/ML SYRINGE SQ SCH (06:00)
--- NOTE | 2017-02-14 07:42 | MB ---
cc: GRISELDA TOBIN MD DATE OF CONSULTATION 02/14/2017 REASON FOR CONSULTATION This is a 76-year-old gentleman who was admitted to the hospital for chest tightness. Over the last three days, he has noted chest tightness which first began in the mid to upper epigastrium and then an episode in his chest. These lasted 15-20 minutes and were spontaneously relieved. They were associated with some mild shortness of breath. No diaphoresis or nausea was present. He came to the emergency department where his initial troponin was 0.50 and subsequent troponin is 1.09. No prior history of heart disease has been present. He did have an episode suggestive of a TIA in August. He had a VQ scan at that time which was normal and an outpatient stress test which showed a slight area of ischemia. He has been asymptomatic since that time. PAST MEDICAL HISTORY Otherwise significant for: 1. AAA repair with an endovascular repair four years ago. 2. He has a history of hypertension and hyperlipidemia. ALLERGIES CONTRAST MEDIA. MEDICATIONS at home include: 1. Simvastatin 20 mg daily 2. Benicar 40 mg daily 3. Prevacid 30 mg daily 4. Aspirin 81 mg daily PHYSICAL EXAM On physical exam, he is awake and alert. He is in no acute distress. VITAL SIGNS: His blood pressure is 128/65, pulse 60 and regular. HEAD, EYES, EARS, NOSE, AND THROAT: There is no neck vein distension. Carotids are normal. LUNGS: Clear. CARDIOVASCULAR: Exam reveals a regular rate and rhythm. There is no murmur or gallop noted. EXTREMITIES: Reveal no edema. ASSESSMENT The patient has evidence for unstable angina by above history and enzymatic criteria. PLAN We plan a cardiac catheterization tomorrow. In view of his contrast allergy, we will premedicate him with prednisone tonight and tomorrow morning and plan heart cath at 12:30 tomorrow. MD ROMELIA Tran/RYLAN /7:36 AM /7:41 AM
[2017-02-14] MEDS: PRAVASTATIN SOD 40 MG TAB PO SCH (09:08)
[2017-02-14] MEDS: ASPIRIN 325 MG TAB PO SCH (09:08)
[2017-02-14] MEDS: PANTOPRAZOLE SOD 40 MG DELAYED RELEASE TAB PO SCH (09:08)
[2017-02-14] MEDS: SODIUM CHLORIDE 0.9% FLUSH 10 ML FLUSH IV FLUSH SCH (09:08)
[2017-02-14] MEDS: LOSARTAN 50 MG TAB PO SCH (09:09)
[2017-02-14] MEDS: METOPROLOL TARTRATE 25 MG TAB PO SCH (09:11)
--- NOTE | 2017-02-14 09:22 | HHI.PR ---
Subjective Remarks This is a pleasant 76 y/o Male with AAA complaining of 3 days of worsening severe midsternal chest pain and associated SOB, Dyspnea on Exertion, relieved with rest, OE. EKG shows PVC's but no ischemia on my review. Trops positive. the patient has GERD, Hyperlipidemia. 02/14: Seen in his bedroom in the presence of his , awaiting for Cardiac Cath tomorrow morning and final recommendations by physician coding specialist, no nausea, vomit or diarrhea. Objective Vital Signs Date Time Temp Pulse Resp B/P Pulse Ox O2 Delivery O2 Flow Rate FiO2 02/14/17 07:15 53 02/14/17 07:15 98.9 68 21 117/75 94 02/14/17 06:00 58 02/14/17 05:00 56 02/14/17 04:00 52 02/14/17 03:50 97.9 59 16 128/65 99 02/14/17 03:00 48 02/14/17 02:00 54 02/14/17 01:00 50 02/14/17 00:00 50 02/13/17 23:40 98.0 66 16 145/58 99 02/13/17 23:00 55 02/13/17 22:00 60 02/13/17 21:00 70 02/13/17 20:00 62 02/13/17 19:00 66 02/13/17 19:00 98.0 54 16 139/76 99 02/13/17 18:01 Room Air 02/13/17 18:01 70 16 140/71 100 Room Air 02/13/17 16:58 74 16 116/62 100 Room Air 02/13/17 16:58 Room Air 02/13/17 15:50 100 Room Air 02/13/17 15:26 76 16 100 Room Air 02/13/17 15:23 98.1 76 16 131/59 100 I/O 02/13/17 02/13/17 02/13/17 02/14/17 02/14/17 02/14/17 06:59 14:59 22:59 06:59 14:59 22:59 Output Total 400 ml Balance -400 ml Output Urine Total 400 ml Result Diagram: 02/13/17 1541 02/14/17 0424 Imaging Last Impressions Chest X-Ray 02/13/17 1532 Signed Impressions: Service Date/Time: Monday, February 13, 2017 15:41 - CONCLUSION: 1. No acute cardiopulmonary disease. Jason Juarez MD Procedures No procedures. Other Results Laboratory Tests Test 02/13/17 02/14/17 15:41 04:24 White Blood Count 9.8 TH/MM3 Red Blood Count 4.86 MIL/MM3 Hemoglobin 14.2 GM/DL Hematocrit 41.1 % Mean Corpuscular Volume 84.7 FL Mean Corpuscular Hemoglobin 29.2 PG Mean Corpuscular Hemoglobin 34.5 % Concent Red Cell Distribution Width 12.8 % Platelet Count 221 TH/MM3 Mean Platelet Volume 8.5 FL Neutrophils (%) (Auto) 68.8 % Lymphocytes (%) (Auto) 19.1 % Monocytes (%) (Auto) 6.0 % Eosinophils (%) (Auto) 5.4 % Basophils (%) (Auto) 0.7 % Neutrophils # (Auto) 6.7 TH/MM3 Lymphocytes # (Auto) 1.9 TH/MM3 Monocytes # (Auto) 0.6 TH/MM3 Eosinophils # (Auto) 0.5 TH/MM3 Basophils # (Auto) 0.1 TH/MM3 CBC Comment DIFF FINAL Differential Comment Prothrombin Time 11.4 SEC Prothromb Time International 1.0 RATIO Ratio Activated Partial 26.4 SEC Thromboplast Time Magnesium Level 1.9 MG/DL Creatine Kinase MB 4.0 NG/ML Sodium Level 141 MEQ/L Potassium Level 3.7 MEQ/L Chloride Level 107 MEQ/L Carbon Dioxide Level 26.9 MEQ/L Anion Gap 7 MEQ/L Blood Urea Nitrogen 17 MG/DL Creatinine 0.90 MG/DL Estimat Glomerular Filtration 82 ML/MIN Rate Random Glucose 92 MG/DL Calcium Level 7.5 MG/DL Total Creatine Kinase 172 U/L Troponin I 1.34 NG/ML Objective Remarks GENERAL: This is a well-nourished, well-developed patient, in no apparent distress. SKIN: No rashes, ecchymoses or lesions. Cool and dry. HEAD: Atraumatic. Normocephalic. No temporal or scalp tenderness. EYES: Pupils equal round and reactive. Extraocular motions intact. No scleral icterus. No injection or drainage. ENT: Nose without bleeding, purulent drainage or septal hematoma. Throat without erythema, tonsillar hypertrophy or exudate. Uvula midline. Airway patent. NECK: Trachea midline. No JVD or lymphadenopathy. Supple, nontender, no meningeal signs. CARDIOVASCULAR: Regular rate and rhythm without murmurs, gallops, or rubs. RESPIRATORY: Clear to auscultation. Breath sounds equal bilaterally. No wheezes , rales, or rhonchi. GASTROINTESTINAL: Abdomen soft, non-tender, nondistended. No hepato-splenomegaly , or palpable masses. No guarding. MUSCULOSKELETAL: Extremities without clubbing, cyanosis, or edema. No joint tenderness, effusion, or edema noted. No calf tenderness. Negative Homans sign bilaterally. NEUROLOGICAL: Awake and alert. Cranial nerves II through XII intact. Motor and sensory grossly within normal limits. Five out of 5 muscle strength in all muscle groups. Normal speech. Medications and IVs Current Medications Medications (Trade) Dose Ordered Sig/Luigi Route Start Time Stop Time Status Last Admin (NS Flush) 2 ml UNSCH PRN IV FLUSH 02/13/17 17:30 (NS Flush) 2 ml BID IV FLUSH 02/13/17 21:00 02/14/17 09:08 (Tylenol) 650 mg Q4H PRN PO 02/13/17 17:30 (Zofran Inj) 4 mg Q6H PRN IVP 02/13/17 17:30 (Lovenox Inj) 90 mg Q12H SQ 02/14/17 06:00 Hold 02/14/17 07:42 (Aspirin) 325 mg DAILY PO 02/14/17 09:00 02/14/17 09:08 (Protonix) 40 mg DAILY PO 02/14/17 09:00 02/14/17 09:08 (Cozaar) 100 mg DAILY PO 02/14/17 09:00 02/14/17 09:09 (Pravachol) 40 mg DAILY PO 02/14/17 09:00 02/14/17 09:08 (Morphine Inj) 5 mg Q4H PRN IV PUSH 02/13/17 17:30 (Nitrostat Sl) 0.4 mg Q5M PRN SL 02/13/17 17:30 (Lopressor) 25 mg Q12H PO 02/14/17 09:00 02/14/17 09:11 (Deltasone) 50 mg ONCE ONCE PO 02/14/17 18:00 02/14/17 18:01 (Deltasone) 50 mg ONCE ONCE PO 02/15/17 08:00 02/15/17 08:01 A/P Assessment and Plan 1. NSTEMI LMWH, Beta Tristian, Cardiac consult, Telemetry, Cardiology following. Aspirin. for Cardiac Cath tomorrow 2. Hypertension controlled 3. Hyperlipidemia continue Home medicines DVT prophylaxis with Lovenox full dose Discussed with patient and his in the room. Discharge Planning Once cleared by physician coding specialist. Jeevan Sandoval MD Feb 14, 2017 09:22
[2017-02-14] MEDS ORDERED: predniSONE 50 MG TAB PO ONE (18:00)
[2017-02-15] VITALS (20 sets, daily range): BP systolic 109–138; BP diastolic 41–79; PULSE 46–73; RESP 16–20; TEMP 97.8–98.6; O2SAT 95–97
--- NOTE | 2017-02-15 07:24 | PD.CARD.PN ---
Subjective Subjective Remarks Feels well. no recurrence of chest pain Objective Vital Signs / I&O Vital Signs Date Time Temp Pulse Resp B/P Pulse Ox O2 Delivery O2 Flow Rate FiO2 02/15/17 06:00 58 02/15/17 04:00 97.8 62 20 121/63 95 02/15/17 04:00 48 02/15/17 02:00 46 02/15/17 00:00 98.0 53 20 116/58 95 02/15/17 00:00 50 02/14/17 22:00 64 02/14/17 20:00 60 02/14/17 20:00 98.1 60 18 112/60 94 02/14/17 18:00 66 02/14/17 17:00 60 02/14/17 16:00 56 02/14/17 15:05 57 02/14/17 15:05 99.4 59 20 104/51 96 02/14/17 14:00 54 02/14/17 13:03 56 02/14/17 12:03 57 02/14/17 11:00 97.8 65 20 104/68 95 02/14/17 11:00 70 02/14/17 10:04 62 02/14/17 09:00 64 02/14/17 08:00 60 I/O 02/14/17 02/14/17 02/14/17 02/15/17 02/15/17 02/15/17 07:00 15:00 23:00 07:00 15:00 23:00 Intake Total 600 ml 320 ml Output Total 400 ml Balance -400 ml 600 ml 320 ml Intake Oral 600 ml 320 ml Output Urine Total 400 ml # Voids 4 4 # Bowel Movements 1 Physical Exam Lungs clear RRR Assessment and Plan Assessment and Plan For cath today. Premedicated with prednisone Mac Wright MD Feb 15, 2017 07:24
[2017-02-15] MEDS ORDERED: diphenhydrAMINE HCL 50 MG CAP PO SCH (07:30)
[2017-02-15] MEDS ORDERED: predniSONE 50 MG TAB PO ONE (08:00)
[2017-02-15] MEDS: PRAVASTATIN SOD 40 MG TAB PO SCH (08:45)
[2017-02-15] MEDS: METOPROLOL TARTRATE 25 MG TAB PO SCH ×3 (08:46→21:21)
[2017-02-15] MEDS: ASPIRIN 325 MG TAB PO SCH (08:46)
[2017-02-15] MEDS: LOSARTAN 50 MG TAB PO SCH (08:46)
[2017-02-15] MEDS: SODIUM CHLORIDE 0.9% FLUSH 10 ML FLUSH IV FLUSH SCH ×3 (08:47→21:22)
[2017-02-15] MEDS: PANTOPRAZOLE SOD 40 MG DELAYED RELEASE TAB PO SCH (08:47)
--- NOTE | 2017-02-15 12:09 | HHI.PR ---
Subjective Remarks This is a pleasant 76 y/o Male with AAA complaining of 3 days of worsening severe midsternal chest pain and associated SOB, Dyspnea on Exertion, relieved with rest, OE. EKG shows PVC's but no ischemia on my review. Trops positive. the patient has GERD, Hyperlipidemia. 02/15: Patient in status post Cardiac Catheterization, Right Coronary artery anatomically dominant, no significant stenosis Left anterior descending artery demonstrated 75% stenosis just after the takeoff of a small diagonal branch, The left circumflex artery was anatomically dominant, high grade stenosis on proximal portion Stented. Objective Vital Signs Date Time Temp Pulse Resp B/P Pulse Ox O2 Delivery O2 Flow Rate FiO2 02/15/17 10:02 59 02/15/17 09:44 56 02/15/17 08:43 60 02/15/17 07:00 54 02/15/17 07:00 98.5 63 18 138/75 96 02/15/17 06:00 58 02/15/17 04:00 97.8 62 20 121/63 95 02/15/17 04:00 48 02/15/17 02:00 46 02/15/17 00:00 98.0 53 20 116/58 95 02/15/17 00:00 50 02/14/17 22:00 64 02/14/17 20:00 60 02/14/17 20:00 98.1 60 18 112/60 94 02/14/17 18:00 66 02/14/17 17:00 60 02/14/17 16:00 56 02/14/17 15:05 57 02/14/17 15:05 99.4 59 20 104/51 96 02/14/17 14:00 54 02/14/17 13:03 56 I/O 02/14/17 02/14/17 02/14/17 02/15/17 02/15/17 02/15/17 07:00 15:00 23:00 07:00 15:00 23:00 Intake Total 600 ml 320 ml Output Total 400 ml Balance -400 ml 600 ml 320 ml Intake Oral 600 ml 320 ml Output Urine Total 400 ml # Voids 4 4 # Bowel Movements 1 Result Diagram: 02/13/17 1541 02/14/17 0424 Imaging Last Impressions Chest X-Ray 02/13/17 1532 Signed Impressions: Service Date/Time: Monday, February 13, 2017 15:41 - CONCLUSION: 1. No acute cardiopulmonary disease. Jason Juarez MD Procedures Cardiac Cath Other Results Laboratory Tests Test 02/13/17 02/14/17 15:41 04:24 White Blood Count 9.8 TH/MM3 Red Blood Count 4.86 MIL/MM3 Hemoglobin 14.2 GM/DL Hematocrit 41.1 % Mean Corpuscular Volume 84.7 FL Mean Corpuscular Hemoglobin 29.2 PG Mean Corpuscular Hemoglobin 34.5 % Concent Red Cell Distribution Width 12.8 % Platelet Count 221 TH/MM3 Mean Platelet Volume 8.5 FL Neutrophils (%) (Auto) 68.8 % Lymphocytes (%) (Auto) 19.1 % Monocytes (%) (Auto) 6.0 % Eosinophils (%) (Auto) 5.4 % Basophils (%) (Auto) 0.7 % Neutrophils # (Auto) 6.7 TH/MM3 Lymphocytes # (Auto) 1.9 TH/MM3 Monocytes # (Auto) 0.6 TH/MM3 Eosinophils # (Auto) 0.5 TH/MM3 Basophils # (Auto) 0.1 TH/MM3 CBC Comment DIFF FINAL Differential Comment Prothrombin Time 11.4 SEC Prothromb Time International 1.0 RATIO Ratio Activated Partial 26.4 SEC Thromboplast Time Magnesium Level 1.9 MG/DL Creatine Kinase MB 4.0 NG/ML Sodium Level 141 MEQ/L Potassium Level 3.7 MEQ/L Chloride Level 107 MEQ/L Carbon Dioxide Level 26.9 MEQ/L Anion Gap 7 MEQ/L Blood Urea Nitrogen 17 MG/DL Creatinine 0.90 MG/DL Estimat Glomerular Filtration 82 ML/MIN Rate Random Glucose 92 MG/DL Calcium Level 7.5 MG/DL Total Creatine Kinase 172 U/L Troponin I 1.34 NG/ML Objective Remarks GENERAL: This is a well-nourished, well-developed patient, in no apparent distress. SKIN: No rashes, ecchymoses or lesions. Cool and dry. HEAD: Atraumatic. Normocephalic. No temporal or scalp tenderness. EYES: Pupils equal round and reactive. Extraocular motions intact. No scleral icterus. No injection or drainage. ENT: Nose without bleeding, purulent drainage or septal hematoma. Throat without erythema, tonsillar hypertrophy or exudate. Uvula midline. Airway patent. NECK: Trachea midline. No JVD or lymphadenopathy. Supple, nontender, no meningeal signs. CARDIOVASCULAR: Regular rate and rhythm without murmurs, gallops, or rubs. RESPIRATORY: Clear to auscultation. Breath sounds equal bilaterally. No wheezes , rales, or rhonchi. GASTROINTESTINAL: Abdomen soft, non-tender, nondistended. No hepato-splenomegaly , or palpable masses. No guarding. MUSCULOSKELETAL: Extremities without clubbing, cyanosis, or edema. No joint tenderness, effusion, or edema noted. No calf tenderness. Negative Homans sign bilaterally. NEUROLOGICAL: Awake and alert. Cranial nerves II through XII intact. Motor and sensory grossly within normal limits. Five out of 5 muscle strength in all muscle groups. Normal speech. Medications and IVs Current Medications Medications (Trade) Dose Ordered Sig/Luigi Route Start Time Stop Time Status Last Admin (NS Flush) 2 ml UNSCH PRN IV FLUSH 02/13/17 17:30 (NS Flush) 2 ml BID IV FLUSH 02/13/17 21:00 02/15/17 08:47 (Tylenol) 650 mg Q4H PRN PO 02/13/17 17:30 02/15/17 11:30 (Zofran Inj) 4 mg Q6H PRN IVP 02/13/17 17:30 (Lovenox Inj) 90 mg Q12H SQ 02/14/17 06:00 Hold 02/14/17 07:42 (Aspirin) 325 mg DAILY PO 02/14/17 09:00 02/15/17 08:46 (Protonix) 40 mg DAILY PO 02/14/17 09:00 02/15/17 08:47 (Cozaar) 100 mg DAILY PO 02/14/17 09:00 02/15/17 08:46 (Pravachol) 40 mg DAILY PO 02/14/17 09:00 02/15/17 08:45 (Morphine Inj) 5 mg Q4H PRN IV PUSH 02/13/17 17:30 (Nitrostat Sl) 0.4 mg Q5M PRN SL 02/13/17 17:30 (Lopressor) 25 mg Q12H PO 02/14/17 09:00 02/15/17 08:46 A/P Assessment and Plan 1. NSTEMI LMWH, Beta Tristian, Cardiac consult, Telemetry, Cardiology following. Aspirin. status post Cardiac Cath stent to LAD. 2. Hypertension controlled 3. Hyperlipidemia continue Home medicines DVT prophylaxis with Lovenox full dose Discussed with patient and his in the room. Discharge Planning Once cleared by public affairs specialist. Jeevan Sandoval MD Feb 15, 2017 12:09
[2017-02-15] MEDS ORDERED: HEPARIN-NS/PF INJ 500 ML ONE (12:23)
[2017-02-15] MEDS ORDERED: MIDAZOLAM HCL 2 MG/2 ML VIAL ONE (12:24)
[2017-02-15] MEDS ORDERED: IOHEXOL 350 MG/ML 50 ML BTL (for Cath Lab) OTHER ONE (12:29)
[2017-02-15] MEDS ORDERED: IOHEXOL 350 MG/ML 100 ML BTL (for Cath Lab) OTHER ONE (12:29)
[2017-02-15] MEDS ORDERED: HEPARIN SODIUM - IV 10,000 UNITS/10 ML VIAL ONE (12:36)
[2017-02-15] MEDS ORDERED: CLOPIDOGREL 300 MG TAB ONE (12:51)
[2017-02-15] MEDS ORDERED: SODIUM CHLORIDE 0.9% FLUSH 10 ML FLUSH IV FLUSH PRN (13:00)
[2017-02-15] MEDS ORDERED: MISC INFORMATION XX ONE (13:00)
[2017-02-15] MEDS ORDERED: ATROPINE SULFATE 1 MG/ML VIAL IV PRN (13:00)
[2017-02-15] MEDS ORDERED: SODIUM CHLOR 0.9% 250 ML INJ 250 ML IV PRN (13:00)
[2017-02-15] MEDS ORDERED: ONDANSETRON HCL 4 MG/2 ML VIAL IV PRN (13:00)
[2017-02-15] MEDS ORDERED: LORazepam 2 MG/ML VIAL IV PRN (13:00)
[2017-02-15] MEDS ORDERED: oxyCODONE/ACETAMINOPHEN 5 MG/325 MG TAB PO PRN (13:00)
[2017-02-15] MEDS ORDERED: ACETAMINOPHEN 325 MG TAB PO PRN (13:00)
[2017-02-15] MEDS ORDERED: BACITRACIN OINT 0.9 GM PKT TOP ONE (13:00)
[2017-02-15] MEDS ORDERED: LIDOCAINE HCL 1% 50 ML VIAL INFIL PRN (13:00)
--- NOTE | 2017-02-15 13:05 | CATHPROC ---
D1G HIS Report Study Information Study Number Admission Scheduled Start Study Start [id number] Feb 13 2017 4:53PM 02/15/2017 Feb 15 2017 12:06PM Arley Service Cardiac Catheterization Admit Source Facility Department Emergency department [facility] - Assistant Operator Physician and Clinical Staff Initial Mac Ramirez Construction Flagger Sandra Healy,RN Recorder James Rueda,RT(R) ScrPam Mead,RT(R) (BS) Procedures Performed Procedure Location (Site) Vessel Name Coronary Angiograms LCA Left Coronary Coronary Angiograms RCA Right Coronary Drug Eluting Inflatio CIRC Prox CIRC Drug Eluting Inflatio LAD Mid Left Coronary Wire insertion Fem Art (right) Femoral Art Equipment Time Stave Grader Description Size Mfg Part Number Used/Scraped [id number] 12:38 [employer] WIRE, ASAHitch Radio PROWATER 180CM 180CM Used *[id number] TRANSDUCER, TRUWAVE [id number] 12:07 GALLEGOS HEALY * Used W/STOCKCOCK *[id number] *[id number] *[id number] *[id number] 12:07 MEDLINE INDUSTRIES PACK, CCL CUSTOM * Used *[id number] 12:07 MEDLINE PACER PEN, SKIN DUAL W/ RULER * Used *[id number] STENT, 3.5 12 RESOLUTE [id number] 12:49 MEDTRONIC 3.5 12 Used INTEGRITY RX *[id number] STENT, 3.5 15 RESOLUTE [id number] 12:43 MEDTRONIC 3.5 15 Used INTEGRITY RX *[id number] 12:44 Songfor MEDICAL 30 WILL INDEFLATOR Used *[id number] 12:07 Songfor MEDICAL SHEATH, FR6.5 PRELUDE 11CM FR 6.5 038ACT Used *[id number] 12:07 [employer] Solutions WIRE, 3MMJ .035 180CM 180CM Used *[id number] 12:07 NAMIC MANIFOLD, 4 PORT * Used *[id number] 12:07 NYCOMED OMNIPAQUE, 350 MG, 100ML 100ML [id number] Used [id number] 12:07 RODAS MEDICAL BLANKET,WARM AIR CCL * Used *[id number] Equipment Model, Serial, Lot Number and Expiration Data Description Model Number Serial Number Lot Number Expiration Date STENT, 3.5 12 RESOLUTE [id number] 07-21-2018 INTEGRITY RX STENT, 3.5 15 RESOLUTE [id number] 10-27-2018 INTEGRITY RX History: Allergies Allergy Reaction Contrast Media Hives History: Risk Factors Family History of Hypertension Dyslipidemia Previous MA Previous Heart Failure Premature CAD Yes Yes Yes No No Prior Valve Prior PCI Prior CABG Surgery No No No Cerebrovascular Peripheral Artery Chronic Lung On Dialysis Diabetes Disease Disease Disease No No No Yes No History: Stress Tests Stress or Imaging Studies Performed No History: Other Current Smoker Method Quit Packs a Day Years Used Pack Years No Cigarettes 25 Years Ago 1 20 20 Labs Hgb (g/dl) Hct (%) WBC (l/cumm) Platelets (thousands) 12.00-18.00 37.00-55.00 4.80-10.80 140.00-450.00 14.2 41.1 9.8 221 Glucose (mg/dl) BUN (mg/dl) Creatinine (mg/dl) BUN:Creatinine (1:x) 60.00-110.00 8.00-20.00 0.10-9.00 10.00-20.00 92 17 0.9 18.9 Na (meq/l) K (meq/l) 138.00-146.00 3.80-5.10 141 3.7 Troponin I (ng/ml) CPK (u/l) CPK-MB (ng/ML) 0.40-2.30 37.00-289.00 0.00-7.00 1.34 172 4.0 Medication Medication Total Dose (Bolus/Oral) Medication Total Dosage/Unit 1% XYLOCAINE 20 mL HEPARIN 6400 units PLAVIX 600 mg VERSED 2 mg Medications (Bolus/Oral) Medication Time Given Dosage/Unit Administered By Reason VERSED 02/15/2017 12:29:52 PM 2 mg Sandra Healy Patient arrived on 2 mg VERSED given by Sandra Healy, RN in Right Forearm via Peripheral IV. Ord ered by Mac Wright. 1% XYLOCAINE 02/15/2017 12:30:34 PM 20 mL Mac Wright Patient arrived on 20 mL 1% XYLOCAINE given by Mac Wright in Right Groin via Subcutaneous. Order ed by Mac Wright. HEPARIN 02/15/2017 12:39:43 PM 6400 units Sandra Healy 6400 units HEPARIN given in lab by Sandra Healy, GEETA in Right Forearm via Peripheral IV. Ordered by Mac Wright. PLAVIX 02/15/2017 12:58:00 PM 600 mg Sandra Healy 600 mg PLAVIX given in lab by Sandra Healy, GEETA via Oral. Ordered by Mac Wright. Medication (Drip) Medication Time Given Dosage/Unit Concentration/Unit Diluent (ml) Solution IV Solutions 02/15/2017 12:17:09 PM 0 mL (IV) 1000 NaCl .9 Patient arrived on IV Solutions given by Mac Wright in Right Forearm via Peripheral IV. Pump/Dri p Flow = 20 ml/hr using NaCl .9. Ordered by Mac Wright. Initial Case Assessment Cardiovascular HR Rhythm NIBP Chest Pain 60 sr 140/78 0 Edema Present Skin color Skin None Normal Warm Dry Circulatory - Right Pulses Dorsalis Pedis Femoral 2 2 Scale (0,1,2,3,4,d) Circulatory - Left Pulses Dorsalis Pedis Femoral 2 Scale (0,1,2,3,4,d) Neurological State Oriented to time-place- Alert Moves all extremities person Respiration - General Respiration Rate SpO2 (%) O2 (lpm) (B/min) 15 98 0 Final Case Assessment Cardiovascular HR Rhythm NIBP Chest Pain 60 sr 117/67 0 Edema Present Skin color Skin None Normal Warm Dry Circulatory - Right Pulses Dorsalis Pedis Femoral 2 2 Scale (0,1,2,3,4,d) Circulatory - Left Pulses Dorsalis Pedis Femoral 2 Scale (0,1,2,3,4,d) Neurological State Oriented to time-place- Alert Moves all extremities person Respiration - General Respiration Rate SpO2 (%) O2 (lpm) (B/min) 18 95 0 Chronological Log Time Study Chronological Log 12:08:22 Patient arrived via Bed. 12:08:24 Patient Name, D.O.B, / Armband Verified By R.N. 12:08:25 Consent signed by the physician and the patient and verified by the Assistant Operator staff. 12:08:32 Pre-op and post- op instructions given; patient acknowledges understanding of instructions. Vitals capture started with the following parameters, Patient=Adult, Interval=5 min, Initial Pr yiyriz=255 mmHg, 12:14:28 Deflation Rate=5 mmHg 12:15:18 Pre-op and post- op instructions given; patient acknowledges understanding of instructions. 12:15:20 Verbal Stimulation=2 Physical Stimulation=2 Airway=2 Respiration=2 TOTAL=8. (0=absent, 1=li mited, 2=present) 12:15:30 Presedation assessment performed by Assistant Operator RN. 12:15:32 Patient has been NPO for More than 6Hrs. 12:15:34 Skin Breakdown-none present per patient 12:15:41 HR=67 bpm, FCQO=601/78 mmhg, SpO2=98.0 %, Resp=16 B/min, Reynaga=2 12:15:49 A # 20 IV was noted in the Forearm (right). Grade = 0 Patient arrived on IV Solutions given by Mac Wright in Right Forearm via Peripheral IV. Pu mp/Drip Flow = 20 ml/hr 12:17:09 using NaCl .9. Ordered by Mac Wright. 12:17:33 History and physical on the chart or being dictated. Assessment: Initial Case, HR=60 BPM, Rhythm=sr, QZPT=742/78 mmhg, Chest Pain=0, Edema=None, Col or=Normal, Skin = Warm, Dry Right Pulses: Dean Ped=2, Femoral=2 12:17:38 Left Pulses: Post Tib=2, Femoral=2 Neurological: State=Alert, Ox3, SAMUELS Respiration: Resp=15 B/min, SpO2=98 %, O2=0 lpm 12:17:55 Reference ECG taken 12:18:20 Bilateral groins prepped with 2% chlorhexidine, and with a 3 min. waiting time. 12:20:11 HR=64 bpm, BFRU=775/77 mmhg, SpO2=96.0 %, Resp=17 B/min, Reynaga=2 12:22:32 MD arrived. 12:25:47 HR=65 bpm, SACV=191/68 mmhg, SpO2=96.0 %, Resp=13 B/min, Reynaga=2 Time Out. Correct patient, correct procedure,correct physician, ,power injector loaded with con trast with surgical team 12:28:56 present. Time Out Concurred by MD, individual staff and MEDICAL TRANSCRIPTION SUPERVISOR in procedure.Loaded by Saurabh Ni ards Rn., verified by Helen Calderon. 12:29:38 Presedation re-assessment performed by Assistant Operator RN. 12::40 Case Start 12::41 Verbal Stimulation=2 Physical Stimulation=2 Airway=2 Respiration=2 TOTAL=8. (0=absent, 1=li mited, 2=present) Patient arrived on 2 mg VERSED given by Sandra Healy RN in Right Forearm via Peripheral I V. Ordered by 12:29:52 Mac Wright. 12:30:11 HR=63 bpm, TKGR=983/75 mmhg, SpO2=96.0 %, Resp=9 B/min, Reynaga=2 12:30:19 Pressure channel 1 zeroed. Patient arrived on 20 mL 1% XYLOCAINE given by Mac Wright in Right Groin via Subcutaneous. Ordered by 12:30:34 Mac Wright. 12:32:00 Access site was Right Femoral Artery. 12:32:07 A SHEATH, FR6.5 PRELUDE 11CM FR 6.5 was advanced into the Fem Art (right) using the Percuta neous technique. A JR 4.0 INFINITI CATHETER FR 6 was advanced over a wire. OMNIPAQUE, 350 MG, 100ML 100ML was us ed for 12:32:27 injections. Recorded Pressure: Ao, HR=55, Condition=Condition 1 12:33:46 (Aorta) Ao 114/55/78 12:34:05 The RCA was injected and visualized at various angles. OMNIPAQUE, 350 MG, 100ML 100ML used . 12:35:15 HR=61 bpm, GWNG=400/63 mmhg, SpO2=86.0 %, Resp=15 B/min, Reynaga=2 12:35:20 Catheter was removed A JL 4.0 INFINITI CATHETER FR 6 was advanced over a wire. OMNIPAQUE, 350 MG, 100ML 100ML was us ed for 12:35:22 injections. 12:35:27 The LCA was injected and visualized at various angles. OMNIPAQUE, 350 MG, 100ML 100ML used . 12:37:47 Catheter was removed A XB 3.5 GUIDE CATHETER FR 6 was advanced over a wire. OMNIPAQUE, 350 MG, 100ML 100ML was used for 12:39:05 injections. 6400 units HEPARIN given in lab by Sandra Healy RN in Right Forearm via Peripheral IV. Or dered by Kyle 12:39:43 Mac. 12:40:12 HR=62 bpm, PAVP=431/65 mmhg, SpO2=88.0 %, Resp=14 B/min, Reynaga=2 12:40:27 A WIRE, ASAHI PROWATER 180CM 180CM was inserted via Fem Art (right). 12:41:50 Interventional wire has crossed the lesion A STENT, 3.5 15 RESOLUTE INTEGRITY RX 3.5 15 was advanced through a XB 3.5 GUIDE CATHETER FR 6 over a 12:42:33 WIRE, ASAHI PROWATER 180CM 180CM. A STENT, 3.5 15 RESOLUTE INTEGRITY RX 3.5 15 was deployed using a 30 WILL INDEFLATOR at 14 atmos pheres for 12:43:47 15 seconds in the CIRC Prox. 12:44:12 Delivery device removed 12:45:13 HR=60 bpm, FBZT=788/65 mmhg, SpO2=95.0 %, Resp=16 B/min, Reynaga=2 12:45:56 Activated Clotting Time Drawn 12:46:13 Wire rerouted down the LAD. 12:46:55 Interventional wire has crossed the lesion A STENT, 3.5 12 RESOLUTE INTEGRITY RX 3.5 12 was advanced through a XB 3.5 GUIDE CATHETER FR 6 over a 12:48:28 WIRE, ASAHI PROWATER 180CM 180CM. A STENT, 3.5 12 RESOLUTE INTEGRITY RX 3.5 12 was deployed using a 30 WILL INDEFLATOR at 14 atmo spheres for 12:49:01 15 seconds in the LAD Mid. 12:49:42 ACT (Normal Range 90-180) = 224 12:50:10 HR=59 bpm, JWOH=945/62 mmhg, SpO2=92.0 %, Resp=13 B/min, Reynaga=2 12:51:30 Wire removed 12:51:32 Catheter was removed 12:52:17 In the Fem Art (right) the SHEATH, FR6.5 PRELUDE 11CM FR 6.[address] by Mac Upton ams. 12:52:59 Case End 12:55:41 HR=62 bpm, GZLB=803/67 mmhg, SpO2=93.0 %, Resp=17 B/min, Reynaga=2 12:58:00 600 mg PLAVIX given in lab by Sandra Healy RN via Oral. Ordered by Mac Wright. Assessment: Final Case, HR=60 BPM, Rhythm=sr, HYWA=332/67 mmhg, Chest Pain=0, Edema=None, [place] r=Normal, Skin = Warm, Dry Right Pulses: Dean Ped=2, Femoral=2 13:01:24 Left Pulses: Post Tib=2, Femoral=2 Neurological: State=Alert, Ox3, SAMUELS Respiration: Resp=18 B/min, SpO2=95 %, O2=0 lpm 13:02:20 Catheter(s) removed without difficulty 13:02:44 Sterile dressing applied to site 13:02:46 No case complications noted. 13:02:48 Cine recording checked. 13:02:51 Bedside Report will be given. 13:02:56 Implantable Device card placed in patient's chart. 13:03:00 Patient moved to stretcher End Study - Contrast Media Used In Study Contrast Total Opened (mL) Total Used (mL) Total Wasted (mL) Omnipaque 90 90 0 End Study - Maximum Contrast Load Max Contrast Load (mL) 500.0 End Study - Radiation Exposure Fluoro Time (minutes) 3.6 End Study - Patient Disposition Complications Transferred To Interventional Outcome No Telemetry Bed successful
--- NOTE | 2017-02-15 13:18 | MA ---
cc: GRISELDA TOBIN MD DATE 02/15/2017 PROCEDURE PERFORMED Heart catheterization PROCEDURAL STATEMENT The patient was prepped and draped in the usual fashion. A 6 sheath was inserted percutaneously in the right femoral artery. Coronary angiography was done with Opal preformed catheters. RESULTS Aortic pressure was 114/55. CORONARY ANGIOGRAPHY The right coronary was anatomically dominant. No significant stenoses were seen. The left main coronary was normal. The left anterior descending artery demonstrated 75% stenosis just after the takeoff of a small diagonal branch. The distal portion of the artery was essentially free from disease. The left circumflex artery was anatomically dominant. A high-grade stenosis was present in its proximal portion compromising the lumen by greater than 90%. This was felt to be the culprit artery. Heparin was administered with an ACT of 224 seconds. An XB 3.5 guide was used and a GSOUND wire advanced into the distal circumflex. Primary stenting was accomplished with a 3.5 x 18-mm drug-eluting stent with post dilatation to 14 atmospheres. This resulted in a good cosmetic result. There was essentially 0 residual. KALYAN-III flow was present both pre and post dilatation. The delivery device was withdrawn. The wire was repositioned down the LAD and a 12 x 3.5 drug-eluting stent was then positioned across the lesion in the left anterior descending artery. This was dilated to 14 atmospheres. Post-dilatation, KALYAN-III flow was present with 0 residual. The equipment was withdrawn. The sheath was sutured into place. CONCLUSIONS Successful PTCA and stenting of the proximal circumflex and mid LAD. MD ROMELIA Tran/RYLAN /1:08 PM /1:16 PM
[2017-02-15] MEDS ORDERED: ATROPINE SULFATE 1 MG/10 ML SYRINGE ONE (15:41)
[2017-02-15] MEDS ORDERED: SODIUM CHLORIDE 0.9% FLUSH 10 ML FLUSH IV FLUSH SCH (21:00)
[2017-02-15] MEDS ORDERED: ATORVASTATIN 40 MG TAB PO SCH (21:00)
[2017-02-16] VITALS (17 sets, daily range): BP systolic 129–137; BP diastolic 67–91; PULSE 44–78; RESP 16–18; TEMP 98–98.6; O2SAT 97–98
[2017-02-16 04:42] LABS: AUTOMATED NEUTROPHIL # 9.8 TH/MM3 (1.8-7.7); BASOPHIL % 0.3 % (0.0-2.0); EOSINOPHIL # 0.1 TH/MM3 (0-0.4); EOSINOPHIL % 0.5 % (0.0-4.0); HEMO FLAGS DIFF FINAL; LYMPH % 16.9 % (9.0-44.0); LYMPHOCYTE # 2.2 TH/MM3 (1.0-4.8); MEAN CELL VOLUME 84.4 FL (80.0-100.0); MEAN CORPUSCULAR HGB CONC 34.4 % (32.0-36.0); MONO % 6.8 % (0.0-8.0); NEUT % 75.5 % (16.0-70.0); PLATELET COUNT 177 TH/MM3 (150-450); RED BLOOD COUNT 4.51 MIL/MM3 (4.50-5.90); RED CELL DISTRIBUTION WIDTH 13.9 % (11.6-17.2)
[2017-02-16 05:08] LABS: BICARBONATE 26.8 MEQ/L (21.0-32.0); POTASSIUM 3.6 MEQ/L (3.5-5.1)
[2017-02-16 05:10] LABS: HDL CHOLESTEROL 35.7 MG/DL (40.0-60.0)
--- NOTE | 2017-02-16 07:32 | PD.CARD.PN ---
Subjective Subjective Remarks denies chest pain Objective Vital Signs / I&O Vital Signs Date Time Temp Pulse Resp B/P Pulse Ox O2 Delivery O2 Flow Rate FiO2 02/16/17 07:26 68 02/16/17 06:00 57 02/16/17 05:53 98.6 53 16 137/69 97 02/16/17 05:00 49 02/16/17 04:00 51 02/16/17 03:00 53 02/16/17 02:00 44 02/16/17 01:00 45 02/16/17 00:38 98.6 72 16 129/67 97 02/16/17 00:00 49 02/15/17 23:00 58 02/15/17 22:00 62 02/15/17 21:26 98.6 72 16 129/67 97 02/15/17 21:00 66 02/15/17 20:00 66 02/15/17 19:00 63 02/15/17 18:02 62 02/15/17 17:00 73 02/15/17 16:10 66 02/15/17 15:00 97.8 67 18 109/41 97 02/15/17 15:00 61 02/15/17 12:21 65 02/15/17 11:00 53 02/15/17 11:00 97.8 55 18 138/79 96 02/15/17 10:02 59 02/15/17 09:44 56 02/15/17 08:43 60 I/O 02/15/17 02/15/17 02/15/17 02/16/17 02/16/17 02/16/17 07:00 15:00 23:00 07:00 15:00 23:00 Intake Total 320 ml 1700 ml 480 ml Balance 320 ml 1700 ml 480 ml Intake Oral 320 ml 700 ml 480 ml IV Total 1000 ml # Voids 4 5 3 # Bowel Movements 0 Physical Exam GENERAL: Well-nourished, well-developed patient in no apparent distress. NECK: No JVD. No carotid bruit. CARDIOVASCULAR: Regular rate and rhythm. S1/S2 no murmur, rub, or gallop. RESPIRATORY: No accessory muscle use. Clear to auscultation. Breath sounds equal bilaterally. GASTROINTESTINAL: Abdomen soft, non-tender, nondistended. MUSCULOSKELETAL: Extremities without clubbing, cyanosis, or edema. right groin c /d/i right fem pulse 2+ Laboratory Laboratory Tests Test 02/16/17 04:00 White Blood Count 13.0 TH/MM3 Red Blood Count 4.51 MIL/MM3 Hemoglobin 13.1 GM/DL Hematocrit 38.0 % Mean Corpuscular Volume 84.4 FL Mean Corpuscular Hemoglobin 29.0 PG Mean Corpuscular Hemoglobin 34.4 % Concent Red Cell Distribution Width 13.9 % Platelet Count 177 TH/MM3 Mean Platelet Volume 8.7 FL Neutrophils (%) (Auto) 75.5 % Lymphocytes (%) (Auto) 16.9 % Monocytes (%) (Auto) 6.8 % Eosinophils (%) (Auto) 0.5 % Basophils (%) (Auto) 0.3 % Neutrophils # (Auto) 9.8 TH/MM3 Lymphocytes # (Auto) 2.2 TH/MM3 Monocytes # (Auto) 0.9 TH/MM3 Eosinophils # (Auto) 0.1 TH/MM3 Basophils # (Auto) 0.0 TH/MM3 CBC Comment DIFF FINAL Differential Comment Sodium Level 142 MEQ/L Potassium Level 3.6 MEQ/L Chloride Level 108 MEQ/L Carbon Dioxide Level 26.8 MEQ/L Anion Gap 7 MEQ/L Blood Urea Nitrogen 21 MG/DL Creatinine 1.02 MG/DL Estimat Glomerular Filtration 71 ML/MIN Rate Random Glucose 94 MG/DL Calcium Level 7.9 MG/DL Total Creatine Kinase 116 U/L Triglycerides Level 103 MG/DL Cholesterol Level 142 MG/DL LDL Cholesterol 86 MG/DL HDL Cholesterol 35.7 MG/DL Cholesterol/HDL Ratio 3.97 RATIO Assessment and Plan Problem List: (1) NSTEMI (non-ST elevated myocardial infarction) Discussed Condition With CAd s/p PCI LETTY LCX and LAD - continue Plavix, ASA, statin, BB and MADELINE-I as tolerated. F/U with CP cardiology in one week. Ok to d/c home Todd Slade Feb 16, 2017 07:32
[2017-02-16] MEDS: LOSARTAN 50 MG TAB PO SCH (07:58)
[2017-02-16] MEDS: METOPROLOL TARTRATE 25 MG TAB PO SCH (07:58)
[2017-02-16] MEDS: PANTOPRAZOLE SOD 40 MG DELAYED RELEASE TAB PO SCH (07:59)
[2017-02-16] MEDS: SODIUM CHLORIDE 0.9% FLUSH 10 ML FLUSH IV FLUSH SCH (08:00)
[2017-02-16] MEDS: PRAVASTATIN SOD 40 MG TAB PO SCH (08:00)
[2017-02-16] MEDS ORDERED: CLOPIDOGREL 75 MG TAB PO SCH (09:00)
[2017-02-16] MEDS ORDERED: ASPIRIN 81 MG CHEW TAB PO SCH (09:00)
[2017-02-16] MEDS ORDERED: POTASSIUM CHLORIDE 20 MEQ CONTROLLED RELEASE TAB PO ONE (11:30)
[2017-02-16] MEDS ORDERED: PLAV75TA29 PO (12:49)
[2017-02-16] MEDS ORDERED: METO25TA3 PO (12:49)
--- NOTE | 2017-02-16 13:02 | HHI.PR ---
Subjective Remarks This is a pleasant 76 y/o Male with AAA complaining of 3 days of worsening severe midsternal chest pain and associated SOB, Dyspnea on Exertion, relieved with rest, OE. EKG shows PVC's but no ischemia on my review. Trops positive. the patient has GERD, Hyperlipidemia. 02/15: Patient in status post Cardiac Catheterization, Right Coronary artery anatomically dominant, no significant stenosis Left anterior descending artery demonstrated 75% stenosis just after the takeoff of a small diagonal branch, The left circumflex artery was anatomically dominant, high grade stenosis on proximal portion Stented. 02/16: Seen in his bedroom, status post campaign marketing specialist recommended for discharge and continue Plavix and Aspirin the patient today developed new Atrial Fibrillation controlled rate, has recommended to continue present care asked about the need for anticoagulation and as per Cardiology do not start anticoagulation his CHADs Score is 2 but no anticoagulation recommended at this time he will follow as outpatient in his office in one week. his present he was clear to drive back to his home in [place] as per campaign marketing specialist and follow with him in one week. Objective Vital Signs Date Time Temp Pulse Resp B/P Pulse Ox O2 Delivery O2 Flow Rate FiO2 02/16/17 12:15 70 02/16/17 11:03 74 02/16/17 11:00 98.0 78 18 135/74 98 02/16/17 10:00 58 02/16/17 09:00 63 02/16/17 08:00 61 02/16/17 07:26 68 02/16/17 07:00 98.3 66 18 133/91 97 02/16/17 06:00 57 02/16/17 05:53 98.6 53 16 137/69 97 02/16/17 05:00 49 02/16/17 04:00 51 02/16/17 03:00 53 02/16/17 02:00 44 02/16/17 01:00 45 02/16/17 00:38 98.6 72 16 129/67 97 02/16/17 00:00 49 02/15/17 23:00 58 02/15/17 22:00 62 02/15/17 21:26 98.6 72 16 129/67 97 02/15/17 21:00 66 02/15/17 20:00 66 02/15/17 19:00 63 02/15/17 18:02 62 02/15/17 17:00 73 02/15/17 16:10 66 02/15/17 15:00 97.8 67 18 109/41 97 02/15/17 15:00 61 I/O 02/15/17 02/15/17 02/15/17 02/16/17 02/16/17 02/16/17 07:00 15:00 23:00 07:00 15:00 23:00 Intake Total 320 ml 1700 ml 480 ml Balance 320 ml 1700 ml 480 ml Intake Oral 320 ml 700 ml 480 ml IV Total 1000 ml # Voids 4 5 3 # Bowel Movements 0 Result Diagram: 02/16/17 0400 02/16/17 0400 Imaging Last Impressions Chest X-Ray 02/13/17 1532 Signed Impressions: Service Date/Time: Monday, February 13, 2017 15:41 - CONCLUSION: 1. No acute cardiopulmonary disease. Jason Juarez MD Procedures Cardiac Cath Other Results Laboratory Tests Test 02/13/17 02/14/17 02/16/17 15:41 04:24 04:00 Prothrombin Time 11.4 SEC Prothromb Time International 1.0 RATIO Ratio Activated Partial 26.4 SEC Thromboplast Time Magnesium Level 1.9 MG/DL Creatine Kinase MB 4.0 NG/ML Troponin I 1.34 NG/ML White Blood Count 13.0 TH/MM3 Red Blood Count 4.51 MIL/MM3 Hemoglobin 13.1 GM/DL Hematocrit 38.0 % Mean Corpuscular Volume 84.4 FL Mean Corpuscular Hemoglobin 29.0 PG Mean Corpuscular Hemoglobin 34.4 % Concent Red Cell Distribution Width 13.9 % Platelet Count 177 TH/MM3 Mean Platelet Volume 8.7 FL Neutrophils (%) (Auto) 75.5 % Lymphocytes (%) (Auto) 16.9 % Monocytes (%) (Auto) 6.8 % Eosinophils (%) (Auto) 0.5 % Basophils (%) (Auto) 0.3 % Neutrophils # (Auto) 9.8 TH/MM3 Lymphocytes # (Auto) 2.2 TH/MM3 Monocytes # (Auto) 0.9 TH/MM3 Eosinophils # (Auto) 0.1 TH/MM3 Basophils # (Auto) 0.0 TH/MM3 CBC Comment DIFF FINAL Differential Comment Sodium Level 142 MEQ/L Potassium Level 3.6 MEQ/L Chloride Level 108 MEQ/L Carbon Dioxide Level 26.8 MEQ/L Anion Gap 7 MEQ/L Blood Urea Nitrogen 21 MG/DL Creatinine 1.02 MG/DL Estimat Glomerular Filtration 71 ML/MIN Rate Random Glucose 94 MG/DL Calcium Level 7.9 MG/DL Total Creatine Kinase 116 U/L Triglycerides Level 103 MG/DL Cholesterol Level 142 MG/DL LDL Cholesterol 86 MG/DL HDL Cholesterol 35.7 MG/DL Cholesterol/HDL Ratio 3.97 RATIO Objective Remarks GENERAL: Well-developed patient, in no apparent distress. SKIN: No rashes, ecchymoses or lesions. HEAD: Atraumatic. Normocephalic. No temporal or scalp tenderness. EYES: Pupils equal round and reactive. ENT: Nose without bleeding, purulent drainage or septal hematoma. NECK: Trachea midline. No JVD or lymphadenopathy. Supple. CARDIOVASCULAR: Irregular rate and rhythm, no murmurs. RESPIRATORY: Clear to auscultation. no wheezing or crackle.s GASTROINTESTINAL: Abdomen soft, non-tender, nondistended. MUSCULOSKELETAL: Extremities without clubbing, cyanosis, or edema. NEUROLOGICAL: Awake and alert. No focal deficits. Medications and IVs Current Medications Medications (Trade) Dose Ordered Sig/Luigi Route Start Time Stop Time Status Last Admin (NS Flush) 2 ml UNSCH PRN IV FLUSH 02/13/17 17:30 (NS Flush) 2 ml BID IV FLUSH 02/13/17 21:00 02/16/17 08:00 (Tylenol) 650 mg Q4H PRN PO 02/13/17 17:30 02/15/17 11:30 (Protonix) 40 mg DAILY PO 02/14/17 09:00 02/16/17 07:59 (Cozaar) 100 mg DAILY PO 02/14/17 09:00 02/16/17 07:58 (Pravachol) 40 mg DAILY PO 02/14/17 09:00 02/16/17 08:00 (Morphine Inj) 5 mg Q4H PRN IV PUSH 02/13/17 17:30 (Nitrostat Sl) 0.4 mg Q5M PRN SL 02/13/17 17:30 (Lopressor) 25 mg Q12H PO 02/14/17 09:00 02/16/17 07:58 (Tylenol) 325 mg Q4H PRN PO 02/15/17 13:00 (Percocet 5-325 Mg) 1 tab Q4H PRN PO 02/15/17 13:00 (Aspirin Chew) 81 mg DAILY PO 02/16/17 09:00 02/16/17 07:59 (Plavix) 75 mg DAILY PO 02/16/17 09:00 02/16/17 07:58 (Ativan Inj) 0.5 mg UNSCH PRN IV 02/15/17 13:00 02/16/17 12:59 Atropine Sulfate 0.5 mg 0.5 mg UNSCH PRN IV 02/15/17 13:00 (NS 250 ml Inj) 250 ml @ 500 mls/hr ONCE PRN IV 02/15/17 13:00 02/16/17 12:59 (Zofran Inj) 4 mg Q4H PRN IV 02/15/17 13:00 (Xylocaine 1% Inj (50 ml)) 10 ml UNSCH PRN INFIL 02/15/17 13:00 02/16/17 12:59 (Lipitor) 40 mg HS PO 02/15/17 21:00 02/15/17 21:21 A/P Assessment and Plan 1. NSTEMI LMWH, Beta Tristian, Cardiac consult, Telemetry, Cardiology following. Aspirin. status post Cardiac Cath stent to LAD. 2. Hypertension controlled 3. Hyperlipidemia continue Home medicines 4. New onset of Atrial Fibrillation controlled rate. discussed with campaign marketing specialist and did not recommended for anticoagulation at this time he will follow the patient in one week as outpatient. DVT prophylaxis with Lovenox full dose Discussed with patient and his in the room. Discharge Planning Discharge Home now. Jeevan Sandoval MD Feb 16, 2017 13:02 Discharge Planning Once cleared by campaign marketing specialist. Jeevan Sandoval MD Feb 16, 2017 13:02
--- NOTE | 2017-02-16 13:17 | HHI.DS ---
Discharge Summary Admission Date Feb 13, 2017 at 16:53 Discharge Date: Feb 16, 2017 Admitting Diagnosis NSTEMI (1) NSTEMI (non-ST elevated myocardial infarction) ICD Code: I21.4 Diagnosis: Principal Procedures Cardiac Cath and 2 stent placement. Brief History - From Admission 76 year old man with AAA complaining of 3 days of worsening severe midsternal Chest pain and associated SOB, CASON. Relieved with rest and now with relief in the ER, EKG shows PVC's but no ischemia on my review. Trops positive. Patient will be admitted for cardiac eval CBC/BMP: 02/16/17 0400 02/16/17 0400 Significant Findings Laboratory Tests Test 02/13/17 02/13/17 02/14/17 02/16/17 15:41 21:40 04:24 04:00 Eosinophils (%) (Auto) 5.4 % (0.0-4.0) Eosinophils # (Auto) 0.5 TH/MM3 (0-0.4) Estimat Glomerular Filtration 73 ML/MIN (>89) 82 ML/MIN (>89) 71 ML/MIN (>89) Rate Random Glucose 141 MG/DL (74-106) Creatine Kinase MB 4.0 NG/ML (0.5-3.6) Troponin I 0.57 NG/ML 0.97 NG/ML 1.34 NG/ML (0.02-0.05) (0.02-0.05) (0.02-0.05) Calcium Level 7.5 MG/DL 7.9 MG/DL (8.5-10.1) (8.5-10.1) White Blood Count 13.0 TH/MM3 (4.0-11.0) Hematocrit 38.0 % (39.0-51.0) Neutrophils (%) (Auto) 75.5 % (16.0-70.0) Neutrophils # (Auto) 9.8 TH/MM3 (1.8-7.7) Chloride Level 108 MEQ/L (98-107) Blood Urea Nitrogen 21 MG/DL (7-18) HDL Cholesterol 35.7 MG/DL (40.0-60.0) Imaging Last Impressions Chest X-Ray 02/13/17 1532 Signed Impressions: Service Date/Time: Monday, February 13, 2017 15:41 - CONCLUSION: 1. No acute cardiopulmonary disease. Jason Juarez MD PE at Discharge GENERAL: Well-developed patient, in no apparent distress. SKIN: No rashes, ecchymoses or lesions. HEAD: Atraumatic. Normocephalic. No temporal or scalp tenderness. EYES: Pupils equal round and reactive. ENT: Nose without bleeding, purulent drainage or septal hematoma. NECK: Trachea midline. No JVD or lymphadenopathy. Supple. CARDIOVASCULAR: Irregular rate and rhythm, no murmurs. RESPIRATORY: Clear to auscultation. no wheezing or crackle.s GASTROINTESTINAL: Abdomen soft, non-tender, nondistended. MUSCULOSKELETAL: Extremities without clubbing, cyanosis, or edema. NEUROLOGICAL: Awake and alert. No focal deficits. Hospital Course This is a pleasant 76 y/o Male with AAA complaining of 3 days of worsening severe midsternal chest pain and associated SOB, Dyspnea on Exertion, relieved with rest, OE. EKG shows PVC's but no ischemia on my review. Trops positive. the patient has GERD, Hyperlipidemia. 02/15: Patient in status post Cardiac Catheterization, Right Coronary artery anatomically dominant, no significant stenosis Left anterior descending artery demonstrated 75% stenosis just after the takeoff of a small diagonal branch, The left circumflex artery was anatomically dominant, high grade stenosis on proximal portion Stented. 02/16: Seen in his bedroom, status post donor specialist recommended for discharge and continue Plavix and Aspirin the patient today developed new Atrial Fibrillation controlled rate, has recommended to continue present care asked about the need for anticoagulation and as per Cardiology do not start anticoagulation his CHADs Score is 2 but no anticoagulation recommended at this time he will follow as outpatient in his office in one week. his present he was clear to drive back to his home in [place] as per donor specialist and follow with him in one week. Assessment and Plan 1. NSTEMI LMWH, Beta Tristian, Cardiac consult, Telemetry, Cardiology following. Aspirin. status post Cardiac Cath stent to LAD and another to the Circumflex. 2. Hypertension controlled 3. Hyperlipidemia continue Home medicines 4. New onset of Atrial Fibrillation controlled rate. discussed with donor specialist and did not recommended for anticoagulation at this time he will follow the patient in one week as outpatient. DVT prophylaxis with Lovenox full dose Discussed with patient and his in the room. Discharge Planning Discharge Home now. Pt Condition on Discharge: Good Discharge Disposition: Discharge Home Discharge Time: <= 30 minutes Discharge Instructions DIET: Follow Instructions for: Heart Healthy Diet Activities you can perform: Regular-No Restrictions Jeevan Sandoval MD Feb 16, 2017 13:17
--- NOTE | 2017-02-16 16:15 | EKG ---
Date Performed: 02/15/2017 Time Performed: 13:46:40 PTAGE: 76 years EKG: Sinus bradycardia. Inferior/lateral T wave changes are nonspecific Borderline ECG PREVIOUS TRACING : 02/13/2017 15.23 Compared to prior tracing no significant change DOCTOR: Lea Alegria Interpretating Date/Time 02/16/2017 16:13:35
--- NOTE | 2017-02-16 16:15 | EKG ---
Date Performed: 02/16/2017 Time Performed: 06:07:24 PTAGE: 76 years EKG: Sinus bradycardia with PAC(s) Normal ECG except for rate PREVIOUS TRACING : 02/15/2017 13.46 Compared to prior tracing no significant change DOCTOR: Lea Alegria Interpretating Date/Time 02/16/2017 16:13:46
== END 2017-02-16 13:26 | disposition home or self-care (01) | DRG 247 ==
LOC: PHED 15:02 → PHEDA 16:53 → HCIS 19:06
PROVIDERS: ADMIT Internal Medicine; ATTEND Internal Medicine
PROC: 027135Z Dilation of Coronary Artery, Two Arteries with Two Drug-eluting Intraluminal Devices, Percutaneous Approach (ICD-10-PCS; principal; 2017-02-15 12:30)
DX: I21.4 Non-ST elevation (NSTEMI) myocardial infarction (principal); I48.91 Unspecified atrial fibrillation; I10 Essential (primary) hypertension; I25.110 Atherosclerotic heart disease of native coronary artery with unstable angina pectoris; E78.5 Hyperlipidemia, unspecified; K21.9 Gastro-esophageal reflux disease without esophagitis; Z95.828 Presence of other vascular implants and grafts; Z87.891 Personal history of nicotine dependence; Z79.82 Long term (current) use of aspirin; Z85.828 Personal history of other malignant neoplasm of skin; Z86.73 Personal history of transient ischemic attack (TIA), and cerebral infarction without residual deficits; Z91.041 Radiographic dye allergy status
CPT/HCPCS: 71010; 80048; 80061; 82550; 82552; 83735; 84484; 85002; 85025; 85610; 85730; 92928; 92929; 93005; 93454; C1769; C1874; C1887; C1893; J0461; J1644; J1650; J2250; J3010; J7512; Q0163; Q9967